=== PATIENT | female | born 1950 | race Two or more races ===

== ENCOUNTER → 2017-11-23 | Outpatient (CLI) | payer OTHER ==
[~2017-11-23] MED LIST: ADVAIR 2501 DISK W/1 IH; ALBUTEROL17 G1 IH; AVELOX ABC PAC400 MG PO; CATAPRES0.1 MG PO; CORDARONE I.50 MG/ML IV; COUMADIN3 MG PO; COZAAR100 MG PO; KLONOPIN0.5 MG/TAB PO; NABUMETONE500 MG PO; PERCOCET 5-3251 EACH PO; PROVENTIL3 ML/2.5 M IH; THEOPHYLLINE400 MG PO; VERAPAMIL ER200 MG PO; ZYNCOF 20-400120 ML PO
== END | disposition home or self-care (01) ==
LOC: TOM 11:05
DX: M12.812 Other specific arthropathies, not elsewhere classified, left shoulder (principal); M19.012 Primary osteoarthritis, left shoulder

== ENCOUNTER → 2017-11-23 | Outpatient (CLI) | payer OTHER | END | disposition home or self-care (01) | LOC: SONOGRAMA 11:12 | DX: M12.812 Other specific arthropathies, not elsewhere classified, left shoulder (principal); M19.012 Primary osteoarthritis, left shoulder ==

== ENCOUNTER 2017-12-15 16:14 | Emergency (ER) | payer OTHER ==
[~2017-12-15] VITALS: Ht 172.7 cm; Wt 93.4 kg
== END 2017-12-16 07:52 ==
LOC: ER 16:14
DX: J45.901 Unspecified asthma with (acute) exacerbation (principal); E03.8 Other specified hypothyroidism; J32.8 Other chronic sinusitis; J84.10 Pulmonary fibrosis, unspecified

== ENCOUNTER 2017-12-29 18:18 | Inpatient (IN) | payer OTHER ==
[~2017-12-29] VITALS: Ht 172.7 cm; Wt 93.4 kg
== END 2018-02-24 13:51 | DRG 202 ==
LOC: ER 18:18 → SEC-K 12-30 06:11 → MEDJ 12-30 06:11
PROC: 3E0F7GC Introduction of Other Therapeutic Substance into Respiratory Tract, Via Natural or Artificial Opening (ICD-10-PCS; principal; 2017-12-30)
PROC: 8E0ZXY6 Isolation (ICD-10-PCS; 2018-01-04)
PROC: 4A033R1 Measurement of Arterial Saturation, Peripheral, Percutaneous Approach (ICD-10-PCS; 2018-01-10)
PROC: BB24ZZZ Computerized Tomography (CT Scan) of Bilateral Lungs (ICD-10-PCS; 2018-01-17)
PROC: 05H533Z Insertion of Infusion Device into Right Subclavian Vein, Percutaneous Approach (ICD-10-PCS; 2018-01-30)
PROC: BW41ZZZ Ultrasonography of Abdomen and Pelvis (ICD-10-PCS; 2018-02-08)
PROC: BW3GZZZ Magnetic Resonance Imaging (MRI) of Pelvic Region (ICD-10-PCS; 2018-02-09)
PROC: BW24ZZZ Computerized Tomography (CT Scan) of Chest and Abdomen (ICD-10-PCS; 2018-02-21)
DX: J45.32 Mild persistent asthma with status asthmaticus (principal); J44.1 Chronic obstructive pulmonary disease with (acute) exacerbation; B37.0 Candidal stomatitis; B44.1 Other pulmonary aspergillosis; N39.0 Urinary tract infection, site not specified; J98.11 Atelectasis; R09.02 Hypoxemia; E03.8 Other specified hypothyroidism; J84.112 Idiopathic pulmonary fibrosis; Z16.24 Resistance to multiple antibiotics; B96.5 Pseudomonas (aeruginosa) (mallei) (pseudomallei) as the cause of diseases classified elsewhere; K75.89 Other specified inflammatory liver diseases; B96.20 Unspecified Escherichia coli [E. coli] as the cause of diseases classified elsewhere; B96.1 Klebsiella pneumoniae [K. pneumoniae] as the cause of diseases classified elsewhere; Z16.12 Extended spectrum beta lactamase (ESBL) resistance
CPT/HCPCS: 72195

== ENCOUNTER 2018-05-29 13:18 | Outpatient (CLI) | payer OTHER | END 2018-05-29 13:20 | disposition home or self-care (01) | LOC: RAD 13:18 | DX: J45.40 Moderate persistent asthma, uncomplicated (principal) ==

== ENCOUNTER 2018-07-05 09:50 | Outpatient (CLI) | payer OTHER | END 2018-07-05 10:04 | disposition home or self-care (01) | LOC: MAMO-SONO 09:50 | DX: Z12.31 Encounter for screening mammogram for malignant neoplasm of breast (principal); Z87.898 Personal history of other specified conditions; N62 Hypertrophy of breast ==

== ENCOUNTER 2018-07-18 11:41 | Outpatient (CLI) | payer OTHER | END 2018-07-18 12:00 | disposition home or self-care (01) | LOC: MRI 11:41 | DX: M25.512 Pain in left shoulder (principal) | CPT/HCPCS: 73221 ==

== ENCOUNTER 2018-08-14 08:59 | Outpatient (CLI) | payer OTHER | END 2018-08-14 09:05 | disposition home or self-care (01) | LOC: SONOGRAMA 08:59 | DX: N60.11 Diffuse cystic mastopathy of right breast (principal); N60.12 Diffuse cystic mastopathy of left breast; N63.13 Unspecified lump in the right breast, lower outer quadrant ==

== ENCOUNTER → 2018-10-11 14:19 | Outpatient (CLI) | payer OTHER | END | disposition home or self-care (01) | LOC: LAB 14:19 | DX: N39.0 Urinary tract infection, site not specified (principal); E04.1 Nontoxic single thyroid nodule; E78.2 Mixed hyperlipidemia; I10 Essential (primary) hypertension ==

== ENCOUNTER → 2018-10-27 | Day surgery (SDC) | payer OTHER ==
[~2018-10-27] MED LIST changes: +CATAPRES0.1 MG; +ENALAPRIL MALEA10 MG; +LIPITOR20 MG; +STIOLTO RESPIMAT4 GM; +SYNTHROID75 MCG; +[UNRECOGNIZED DRUG - OTHER] PO
== END | disposition home or self-care (01) ==
LOC: ADM 10-25 14:30 → CIR.AMB 06:32
DX: D24.1 Benign neoplasm of right breast (principal)

== ENCOUNTER 2018-11-07 13:25 | Outpatient (CLI) | payer OTHER | END 2018-11-07 13:36 | disposition home or self-care (01) | LOC: SONOGRAMA 13:25 | DX: M12.9 Arthropathy, unspecified (principal); M19.90 Unspecified osteoarthritis, unspecified site ==

== ENCOUNTER 2018-11-20 09:31 | Emergency (ER) | payer OTHER ==
[~2018-11-20] VITALS: Ht 172.7 cm; Wt 87.5 kg
[2018-11-20] MEDS ORDERED: KETO10TA2 PO (14:54)
[2018-11-20] MEDS ORDERED: MEDROLPACK PO (14:54)
[2018-11-20] MEDS ORDERED: NORFLEX100MG PO (14:54)
== END 2018-11-20 15:52 | disposition home or self-care (01) ==
LOC: ER 09:31
DX: M25.552 Pain in left hip (principal)

== ENCOUNTER 2019-06-21 09:04 | Emergency (ER) | payer OTHER ==
[~2019-06-21] VITALS: Ht 172.7 cm; Wt 92.1 kg
[~2019-06-21 09:04] MED LIST changes: +KETO10TA2 PO; +MEDROLPACK PO; +NORFLEX100MG PO
[2019-06-21] MEDS ORDERED: LASIX20 MG PO (09:22)
== END 2019-06-21 10:54 | disposition home or self-care (01) ==
LOC: ER 09:04
DX: M62.830 Muscle spasm of back (principal)

== ENCOUNTER 2019-09-07 11:53 | Emergency (ER) | payer OTHER ==
[~2019-09-07] VITALS: Ht 172.7 cm; Wt 93.9 kg
[~2019-09-07 11:53] MED LIST changes: +LASIX20 MG PO
[2019-09-07] MEDS ORDERED: PERCOCET 5-3251 EACH PO (12:56)
== END 2019-09-07 13:59 | disposition home or self-care (01) ==
LOC: ER 11:53
DX: G89.29 Other chronic pain (principal)

== ENCOUNTER 2019-09-14 10:16 | Emergency (ER) | payer OTHER ==
[~2019-09-14] VITALS: Ht 172.7 cm; Wt 92.5 kg
[2019-09-14] MEDS ORDERED: DICLOFENAC SODI75 MG PO (11:07)
[2019-09-14] MEDS ORDERED: CYCLOBENZAPRINE10 MG PO (11:07)
== END 2019-09-14 11:17 | disposition home or self-care (01) ==
LOC: ER 10:16
DX: M62.838 Other muscle spasm (principal)

== ENCOUNTER 2019-10-29 06:41 | Emergency (ER) | payer OTHER ==
[~2019-10-29] VITALS: Ht 172.7 cm; Wt 92.5 kg
[~2019-10-29 06:41] MED LIST changes: +CYCLOBENZAPRINE10 MG PO; +DICLOFENAC SODI75 MG PO
== END 2019-10-29 11:27 | disposition home or self-care (01) ==
LOC: ER 06:41
DX: B34.9 Viral infection, unspecified (principal)

== ENCOUNTER 2019-11-10 10:32 | Emergency (ER) | payer OTHER ==
[~2019-11-10] VITALS: Ht 172.7 cm; Wt 92.5 kg
== END 2019-11-10 16:35 | disposition home or self-care (01) ==
LOC: ER 10:32
DX: J45.901 Unspecified asthma with (acute) exacerbation (principal); J40 Bronchitis, not specified as acute or chronic

== ENCOUNTER 2019-12-22 14:17 | Emergency (ER) | payer OTHER ==
[~2019-12-22] VITALS: Ht 172.7 cm; Wt 92.5 kg
[2019-12-22] MEDS ORDERED: CARDIZEM CD240 MG (14:53)
== END 2019-12-22 20:08 | disposition home or self-care (01) ==
LOC: ER 14:17
DX: M12.852 Other specific arthropathies, not elsewhere classified, left hip (principal); M12.851 Other specific arthropathies, not elsewhere classified, right hip

== ENCOUNTER 2020-03-18 08:24 | Emergency (ER) | payer OTHER ==
[~2020-03-18] VITALS: Ht 172.7 cm; Wt 93.9 kg
[~2020-03-18 08:24] MED LIST changes: +CARDIZEM CD240 MG
== END 2020-03-18 09:15 | disposition home or self-care (01) ==
LOC: ER 08:24
DX: R07.89 Other chest pain (principal)

== ENCOUNTER 2020-04-15 12:05 | Emergency (ER) | payer OTHER ==
[~2020-04-15] VITALS: Ht 172.7 cm; Wt 93.9 kg
[2020-04-15] MEDS ORDERED: BUSPIRONE HCL15 MG (12:35)
[2020-04-15] MEDS ORDERED: TRAZODONE HCL50 MG (12:35)
[2020-04-15] MEDS ORDERED: LAMICTAL25 MG (12:36)
== END 2020-04-15 16:56 | disposition home or self-care (01) ==
LOC: ER 12:05
DX: R07.89 Other chest pain (principal); R06.02 Shortness of breath; R00.2 Palpitations; F41.8 Other specified anxiety disorders; S20.212S Contusion of left front wall of thorax, sequela; W18.39XS Other fall on same level, sequela

== ENCOUNTER 2020-08-20 15:13 | Outpatient (CLI) | payer OTHER ==
[~2020-08-20 15:13] MED LIST changes: +BUSPIRONE HCL15 MG; +LAMICTAL25 MG; +TRAZODONE HCL50 MG
== END 2020-08-20 15:17 | disposition home or self-care (01) ==
LOC: RAD 15:13
PROVIDERS: ATTEND Internal Medicine Cardiovascular Disease
DX: J44.9 Chronic obstructive pulmonary disease, unspecified (principal)

== ENCOUNTER 2020-09-10 10:07 | Outpatient (CLI) | payer OTHER | END 2020-09-10 10:21 | disposition home or self-care (01) | LOC: MAMO-SONO 10:07 | PROVIDERS: ATTEND Internal Medicine Cardiovascular Disease | DX: Z12.31 Encounter for screening mammogram for malignant neoplasm of breast (principal); N64.59 Other signs and symptoms in breast ==

== ENCOUNTER 2020-10-14 10:44 | Emergency (ER) | payer OTHER ==
[~2020-10-14] VITALS: Ht 172.7 cm; Wt 93.9 kg
[2020-10-14] MEDS ORDERED: KETO10TA2 PO (15:00)
[2020-10-14] MEDS ORDERED: NORFLEX100MG PO (15:00)
== END 2020-10-14 16:12 | disposition home or self-care (01) ==
LOC: ER 10:44
DX: S40.012A Contusion of left shoulder, initial encounter (principal); S50.02XA Contusion of left elbow, initial encounter; S70.02XA Contusion of left hip, initial encounter; M54.2 Cervicalgia; W18.09XA Striking against other object with subsequent fall, initial encounter; Y93.89 Activity, other specified; Y92.017 Garden or yard in single-family (private) house as the place of occurrence of the external cause; Y99.8 Other external cause status; Z03.818 Encounter for observation for suspected exposure to other biological agents ruled out

== ENCOUNTER 2020-11-19 19:51 | Emergency (ER) | payer OTHER ==
[~2020-11-19] VITALS: Ht 172.7 cm; Wt 48.5 kg
[2020-11-20] MEDS ORDERED: CIPRO500 MG PO (04:49)
== END 2020-11-20 05:09 | disposition home or self-care (01) ==
LOC: ER 19:51
DX: K80.50 Calculus of bile duct without cholangitis or cholecystitis without obstruction (principal); N39.0 Urinary tract infection, site not specified; R10.11 Right upper quadrant pain

== ENCOUNTER 2021-01-08 13:29 | Emergency (ER) | payer OTHER ==
[~2021-01-08] VITALS: Ht 172.7 cm; Wt 93.9 kg
[~2021-01-08 13:29] MED LIST changes: +CIPRO500 MG PO
[2021-01-08] MEDS ORDERED: VOLTAREN-XR100 MG PO (16:03)
[2021-01-08] MEDS ORDERED: PERCOCET 5-3251 EACH PO (16:03)
== END 2021-01-08 16:28 | disposition home or self-care (01) ==
LOC: EMR PED 13:29 → ER 13:29
DX: M13.852 Other specified arthritis, left hip (principal)

== ENCOUNTER 2021-01-20 07:45 | Inpatient (IN) | payer OTHER ==
[~2021-01-20] VITALS: Ht 172.7 cm; Wt 94.8 kg
[~2021-01-20 07:45] MED LIST changes: +VOLTAREN-XR100 MG PO
[2021-01-20] MEDS ORDERED: THEOPHYLLINE A300 M1 PO (09:42)
[2021-01-20] MEDS ORDERED: CARDURA1 MG PO (09:42)
[2021-01-20] MEDS ORDERED: SINGULAIR10 MG PO (09:43)
[2021-01-20] MEDS ORDERED: SYNTHROID88 MCG PO (09:43)
[2021-01-27] MEDS ORDERED: NABUMETONE750 MG (11:15)
[2021-01-27] MEDS ORDERED: AMITRIPTYLINE H75 MG (11:15)
[2021-01-27] MEDS ORDERED: OXYC1TAB9 (11:15)
[2021-01-27] MEDS ORDERED: SUPREP BOWEL P354 ML (11:15)
[2021-01-27] MEDS ORDERED: LAMICTAL150 MG (11:15)
[2021-01-27] MEDS ORDERED: DICLOFENAC SOD100 MG (11:15)
[2021-01-27] MEDS ORDERED: BUSPIRONE HCL15 MG (11:16)
[2021-01-27] MEDS ORDERED: CLONIDINE HCL0.1 MG (11:16)
[2021-01-27] MEDS ORDERED: FLONASE16 GM (11:16)
[2021-01-27] MEDS ORDERED: PAROXETINE HCL40 MG (11:16)
== END 2021-01-30 20:48 | DRG 470 ==
LOC: SURG 01-27 06:20 → O/R 01-27 06:20 → SURH 01-27 07:45 → SURG 01-27 16:54 → O/R 01-27 20:01 → SURG 01-27 20:02
PROVIDERS: ADMIT Orthopaedic Surgery; ATTEND Orthopaedic Surgery
PROC: 0SRB0JZ Replacement of Left Hip Joint with Synthetic Substitute, Open Approach (ICD-10-PCS; principal; 2021-01-27 10:15)
DX: M16.12 Unilateral primary osteoarthritis, left hip (principal); D62 Acute posthemorrhagic anemia; I10 Essential (primary) hypertension; E03.8 Other specified hypothyroidism; J44.9 Chronic obstructive pulmonary disease, unspecified; Z20.822 Contact with and (suspected) exposure to COVID-19

== ENCOUNTER 2021-01-21 06:00 | Day surgery (SDC) | payer OTHER ==
[~2021-01-21 06:00] MED LIST changes: +CARDURA1 MG PO; +SINGULAIR10 MG PO; +SYNTHROID88 MCG PO; +THEOPHYLLINE A300 M1 PO
== END 2021-01-21 10:30 | disposition home or self-care (01) ==
LOC: AMB-ENDOS 06:00
PROVIDERS: ATTEND Internal Medicine Gastroenterology
DX: D12.5 Benign neoplasm of sigmoid colon (principal); Z20.822 Contact with and (suspected) exposure to COVID-19

== ENCOUNTER 2021-04-07 13:24 | Outpatient (CLI) | payer OTHER ==
[~2021-04-07 13:24] MED LIST changes: +AMITRIPTYLINE H75 MG; +CLONIDINE HCL0.1 MG; +DICLOFENAC SOD100 MG; +FLONASE16 GM; +LAMICTAL150 MG; +NABUMETONE750 MG; +OXYC1TAB9; +PAROXETINE HCL40 MG; +SUPREP BOWEL P354 ML
== END 2021-04-07 13:32 | disposition home or self-care (01) ==
LOC: RAD 13:24
PROVIDERS: ATTEND Internal Medicine Pulmonary Disease
DX: J44.9 Chronic obstructive pulmonary disease, unspecified (principal)

== ENCOUNTER → 2021-04-23 09:58 | Outpatient (CLI) | payer OTHER ==
[~2021-04-23 09:58] MED LIST changes: +DICY20TA PO; +STOOL SOFTENER50 MG PO
== END | disposition home or self-care (01) ==
LOC: LAB 09:58
PROVIDERS: ATTEND Internal Medicine Cardiovascular Disease
DX: I10 Essential (primary) hypertension (principal); E11.9 Type 2 diabetes mellitus without complications; E03.8 Other specified hypothyroidism; E78.2 Mixed hyperlipidemia; Z12.11 Encounter for screening for malignant neoplasm of colon; E55.9 Vitamin D deficiency, unspecified

== ENCOUNTER 2021-08-10 14:52 | Emergency (ER) | payer OTHER ==
[~2021-08-10] VITALS: Ht 175.3 cm; Wt 81.2 kg
[~2021-08-10 14:52] MED LIST changes: -DICY20TA PO; -STOOL SOFTENER50 MG PO
[2021-08-10] MEDS ORDERED: STOOL SOFTENER50 MG PO (19:06)
[2021-08-10] MEDS ORDERED: DICY20TA PO (19:06)
[2021-08-10] MEDS ORDERED: KETO10TA2 PO (19:09)
== END 2021-08-10 19:12 | disposition home or self-care (01) ==
LOC: ER 14:52
DX: K59.09 Other constipation (principal); R10.32 Left lower quadrant pain

== ENCOUNTER 2021-09-03 13:13 | Emergency (ER) | payer OTHER ==
[~2021-09-03] VITALS: Ht 175.3 cm; Wt 99.3 kg
[~2021-09-03 13:13] MED LIST changes: +DICY20TA PO; +STOOL SOFTENER50 MG PO
[2021-09-03] MEDS ORDERED: LASIX20 MG PO (14:12)
[2021-09-03] MEDS ORDERED: GABAPENTIN300 M2 PO (15:54)
[2021-09-03] MEDS ORDERED: SKELAXIN800 MG PO (15:54)
[2021-09-03] MEDS ORDERED: DICLOFENAC POTA50 MG PO (15:54)
== END 2021-09-03 16:49 | disposition home or self-care (01) ==
LOC: ER 13:13
DX: G89.29 Other chronic pain (principal); M25.552 Pain in left hip; M25.551 Pain in right hip; R10.2 Pelvic and perineal pain; M54.59 Other low back pain

== ENCOUNTER 2021-09-10 13:09 | Outpatient (CLI) | payer OTHER ==
[~2021-09-10 13:09] MED LIST changes: +DICLOFENAC POTA50 MG PO; +GABAPENTIN300 M2 PO; +SKELAXIN800 MG PO
== END 2021-09-17 14:45 | disposition home or self-care (01) ==
LOC: MRI 13:09
DX: M48.07 Spinal stenosis, lumbosacral region (principal); M54.59 Other low back pain; M25.552 Pain in left hip; Z96.642 Presence of left artificial hip joint
CPT/HCPCS: 72148

== ENCOUNTER 2021-12-07 13:24 | Emergency (ER) | payer OTHER ==
[~2021-12-07] VITALS: Ht 175.3 cm; Wt 94.3 kg
[~2021-12-07 13:24] MED LIST changes: +NEURONTIN300 MG PO
== END 2021-12-07 17:04 | disposition home or self-care (01) ==
LOC: ER 13:24
DX: R05.9 Cough, unspecified (principal); Z03.818 Encounter for observation for suspected exposure to other biological agents ruled out

== ENCOUNTER 2021-12-15 09:50 | Outpatient (CLI) | payer OTHER | END 2021-12-15 09:56 | disposition home or self-care (01) | LOC: TOM 09:50 | PROVIDERS: ATTEND Internal Medicine Pulmonary Disease | DX: J44.9 Chronic obstructive pulmonary disease, unspecified (principal); R91.1 Solitary pulmonary nodule ==

== ENCOUNTER 2022-01-12 14:39 | Outpatient (CLI) | payer OTHER | END 2022-01-12 14:51 | disposition home or self-care (01) | LOC: TOM 14:39 | PROVIDERS: ATTEND Orthopaedic Surgery | DX: M21.70 Unequal limb length (acquired), unspecified site (principal); M21.751 Unequal limb length (acquired), right femur ==

== ENCOUNTER 2022-04-09 07:31 | Outpatient (CLI) | payer OTHER | END 2022-04-09 07:49 | disposition home or self-care (01) | LOC: SONOGRAMA 07:31 | PROVIDERS: ATTEND Internal Medicine Cardiovascular Disease | DX: Z12.31 Encounter for screening mammogram for malignant neoplasm of breast (principal); J44.9 Chronic obstructive pulmonary disease, unspecified; R10.9 Unspecified abdominal pain ==

== ENCOUNTER 2022-08-05 11:56 | Outpatient (CLI) | payer OTHER | END 2022-08-05 12:01 | disposition home or self-care (01) | LOC: RAD 11:56 | PROVIDERS: ATTEND Internal Medicine Cardiovascular Disease | DX: J44.9 Chronic obstructive pulmonary disease, unspecified (principal) ==

== ENCOUNTER 2022-08-23 14:38 | Outpatient (CLI) | payer OTHER | END 2022-08-23 14:42 | disposition home or self-care (01) | LOC: RAD 14:38 | PROVIDERS: ATTEND Orthopaedic Surgery | DX: M25.559 Pain in unspecified hip (principal); M25.511 Pain in right shoulder; M25.512 Pain in left shoulder ==

== ENCOUNTER 2022-08-31 13:11 | Outpatient (CLI) | payer OTHER ==
[2022-09-13] MEDS ORDERED: ENALAPRIL MALEA10 MG PO (10:30)
[2022-09-13] MEDS ORDERED: CARDIZEM CD300 MG PO (10:30)
[2022-09-13] MEDS ORDERED: SYNTHROID88 MCG PO (10:30)
[2022-09-13] MEDS ORDERED: LIPITOR40 M1 (10:30)
[2022-09-13] MEDS ORDERED: CARDURA1 MG PO (10:30)
[2022-09-13] MEDS ORDERED: TEOFILINA (10:31)
[2022-09-13] MEDS ORDERED: MUPIROCIN1 G1 TOP (14:40)
[2022-09-13] MEDS ORDERED: BACTRIM 400-801 EACH PO (14:40)
[2022-09-13] MEDS ORDERED: HIBICLENS118 ML TOP (14:40)
== END 2022-08-31 13:12 | disposition home or self-care (01) ==
LOC: NUCLEAR 13:11
PROVIDERS: ATTEND Obstetrics & Gynecology
DX: M81.0 Age-related osteoporosis without current pathological fracture (principal); Z88.0 Allergy status to penicillin

== ENCOUNTER → 2022-09-13 | Emergency (ER) | payer OTHER ==
[~2022-09-13] VITALS: Ht 177.8 cm; Wt 97.5 kg
[~2022-09-13] MED LIST changes: +BACTRIM 400-801 EACH PO; +CARDIZEM CD300 MG PO; +ENALAPRIL MALEA10 MG PO; +HIBICLENS118 ML TOP; +LIPITOR40 M1; +MUPIROCIN1 G1 TOP; +TEOFILINA
== END | disposition home or self-care (01) ==
LOC: ER 09:35
DX: R07.89 Other chest pain (principal); L02.412 Cutaneous abscess of left axilla; Z88.0 Allergy status to penicillin; E03.9 Hypothyroidism, unspecified; E78.00 Pure hypercholesterolemia, unspecified; I10 Essential (primary) hypertension

== ENCOUNTER → 2022-09-21 | Emergency (ER) | payer OTHER ==
[~2022-09-21] VITALS: Ht 177.8 cm; Wt 97.1 kg
== END | disposition home or self-care (01) ==
LOC: ER 14:08
DX: M25.50 Pain in unspecified joint (principal); Z88.0 Allergy status to penicillin

== ENCOUNTER 2023-04-13 14:43 | Outpatient (CLI) | payer OTHER | END 2023-04-13 14:59 | disposition home or self-care (01) | LOC: MAMO-SONO 14:43 | PROVIDERS: ATTEND Internal Medicine Cardiovascular Disease | DX: Z12.31 Encounter for screening mammogram for malignant neoplasm of breast (principal); N63.11 Unspecified lump in the right breast, upper outer quadrant ==

== ENCOUNTER 2024-01-11 09:42 | Outpatient (CLI) | payer OTHER | END 2024-01-11 09:45 | disposition home or self-care (01) | LOC: SONOGRAMA 09:42 | DX: E04.2 Nontoxic multinodular goiter (principal) ==

== ENCOUNTER 2024-01-11 10:50 | Emergency (ER) | payer OTHER ==
[~2024-01-11] VITALS: Ht 177.8 cm; Wt 97.1 kg
[2024-01-11 12:56] LABS: HEMATOCRIT 39.7 % (36.0-45.00); HEMOGLOBIN 13.4 g/dL (12.0-15.00); MEAN CELL VOLUME 96.8 fL (80.00-100.00); MEAN CORPUSCULAR HEMOGLOBIN 32.6 pg (27.00-32.0); MEAN CORPUSCULAR HGB CONC 33.7 g/dl (32.0-36.0); PLATELET COUNT 321 K/uL (150-450); RED CELL DISTRIBUTION WIDTH 14.5 % (11.5-14.5)
[2024-01-11 13:00] LABS: URINE APPEARANCE Clear; URINE BILIRRUBIN Negative (NEGATIVE); URINE BLOOD Trace; URINE COLOR Yellow; URINE GLUCOSE Negative (NEGATIVE); URINE LEUKOCYTE Negative; URINE NITRATE Negative; URINE PROTEIN Negative (NEGATIVE)
[2024-01-11 13:01] LABS: URINE BACTERIA 13.8 uL (0.0-1933); URINE EPITHELIAL CELLS 4.3 uL (0.0-38.8); URINE RBC 19.5 uL (0.0-20.8)
[2024-01-11 13:40] LABS: CALCIUM 9.1 mg/dL (8.5-10.1); CREATININE SERUM 0.73 mg/dL (0.55-1.02); GFR 78.37; POTASSIUM 3.72 mEq/L (3.5-5.1)
== END 2024-01-11 15:21 | disposition home or self-care (01) ==
LOC: ER 10:50
PROVIDERS: General Practice
DX: R30.0 Dysuria (principal); I10 Essential (primary) hypertension; E03.9 Hypothyroidism, unspecified; I49.9 Cardiac arrhythmia, unspecified; Z88.0 Allergy status to penicillin

== ENCOUNTER → 2024-01-11 14:51 | Outpatient (CLI) | payer OTHER ==
[2024-01-11 09:26] LABS: HEMATOCRIT 39.5 % (36.0-45.00); HEMOGLOBIN 13.5 g/dL (12.0-15.00); MEAN CELL VOLUME 96.4 fL (80.00-100.00); MEAN CORPUSCULAR HGB CONC 34.2 g/dl (32.0-36.0); PLATELET COUNT 289 K/uL (150-450); RED CELL DISTRIBUTION WIDTH 14.4 % (11.5-14.5)
[2024-01-11 10:08] LABS: ALBUMIN 3.4 gm/dL (3.4-5.0); BILIRUBIN TOTAL 0.38 mg/dL (0.3-1.2); CALCIUM 9.4 mg/dL (8.5-10.1); CHOL HDL RATIO 2.3 (0-5.0); CREATININE SERUM 0.75 mg/dL (0.55-1.02); GFR 75.96; GLOBULINA 2.9 G/DL (2.4-3.5); POTASSIUM 3.9 mEq/L (3.5-5.1); T4 FREE 1.46 NG/ML (0.76-1.46); TOTAL PROTEIN 6.3 gm/dL (6.4-8.2); TSH 1.6 uIU/mL (0.358-3.74)
[2024-01-11 13:19] LABS: ob NEGATIVE (NEGATIVE)
[2024-01-12 14:07] LABS: DHEA-SULFATE 14.5 ug/dL (20.4-186.6)
[2024-01-12 16:11] LABS: ACTH 11.7 pg/mL (7.2-63.3)
== END | disposition home or self-care (01) ==
LOC: LAB
PROVIDERS: ATTEND Internal Medicine
DX: E55.9 Vitamin D deficiency, unspecified (principal); E78.2 Mixed hyperlipidemia; I10 Essential (primary) hypertension; D50.8 Other iron deficiency anemias; E03.8 Other specified hypothyroidism; E53.8 Deficiency of other specified B group vitamins

== ENCOUNTER 2024-07-19 11:53 | Outpatient (CLI) | payer OTHER | END 2024-07-19 12:04 | disposition home or self-care (01) | LOC: SONOGRAMA 11:53 | PROVIDERS: ATTEND Internal Medicine Cardiovascular Disease | DX: M12.9 Arthropathy, unspecified (principal) ==

== ENCOUNTER 2024-11-30 08:59 | Emergency (ER) | payer OTHER ==
[~2024-11-30] VITALS: Ht 152.4 cm; Wt 91.6 kg
[2024-11-30] MEDS ORDERED: AMLODIPINE BESYL5 MG PO (09:21)
[2024-11-30] MEDS ORDERED: MONTELUKAST SOD10 MG PO (09:21)
[2024-11-30] MEDS ORDERED: FAMOTIDINE40 MG PO (09:22)
[2024-11-30] MEDS ORDERED: XARELTO20 MG (09:22)
[2024-11-30] MEDS ORDERED: DILTIAZEM HCL120 M1 PO (09:22)
[2024-11-30] MEDS ORDERED: LEVALBUTEROL HCL 0.63 MG/3 ML SOLUTION IH SCH (09:45)
[2024-11-30] MEDS ORDERED: LEVALBUTEROL HCL 0.63 MG/3 ML SOLUTION IH ONE (10:14)
[2024-11-30 11:02] LABS: HEMATOCRIT 35.4 % (36.0-45.00); HEMOGLOBIN 11.9 g/dL (12.0-15.00); MEAN CELL VOLUME 98.3 fL (80.00-100.00); MEAN CORPUSCULAR HGB CONC 33.6 g/dl (32.0-36.0); PLATELET COUNT 209 K/uL (150-450); RED BLOOD COUNT 3.61 M/uL (4.00-6.00)
[2024-11-30 11:28] LABS: ALBUMIN 2.9 gm/dL (3.4-5.0); ALKALINE PHOSPHATASE 107 U/L (50-136); ALT/SGPT 21 U/L (12-78); AST/SGOT 15 U/L (15-37); BILIRUBIN TOTAL 0.56 mg/dL (0.3-1.2); BLOOD UREA NITROGEN 8 mg/dL (7-18); BUN CREA RATIO 13 (7.0-25.0); CALCIUM 9.1 mg/dL (8.5-10.1); CARBON DIOXIDE 29 mEq/L (21-32); CHLORIDE 111 mmol/L (98-107); CREATININE SERUM 0.63 mg/dL (0.55-1.02); GFR 92.63; GLOBULINA 3.3 G/DL (2.4-3.5); GLUCOSE FASTING 103 mg/dL (65-100); OSMOLALITY SERUM 289 MOSM/KG (275-295); SODIUM 146 mmol/L (136-145); TOTAL PROTEIN 6.2 gm/dL (6.4-8.2)
[2024-11-30 11:32] LABS: ANION GAP 9 (10.0-20.0); C-REACTIVE PROTEIN < 0.29 MG/DL (0.00-0.29)
[2024-11-30 11:33] LABS: POTASSIUM 2.99 mEq/L (3.5-5.1)
[2024-11-30] MEDS ORDERED: POTASSIUM CHLORIDE/D5-0.9%NACL 1,000 ML IV ONE (11:45)
[2024-11-30] MEDS ORDERED: POTASSIUM CHLORIDE 20MEQ/100ML H2O PB IV ONE (11:54)
[2024-11-30] MEDS ORDERED: POTASSIUM CHLORIDE/D5-0.9%NACL 20 MEQ/1,000 ML PIGGYBAG IV ONE (12:10)
[2024-11-30 12:58] LABS: ABG PH 7.457 (7.35-7.45); ABG PO2 80.9 mmHg (80-100); ABG pCO2 41.4 mmHg (35-45); BASE EXCESS 1.3 mmol/l; BICARBONATE 28.6 mmol/l (23-25); SaO2 96.6 %; Tco2 29.9 mmol/l
[2024-11-30 12:59] LABS: allen test SATISFACTORY; o2 32 %; puncture site RADIAL RIGHT
[2024-11-30] MEDS ORDERED: POTASSIUM BICARBONATE/CIT AC 25 MEQ TABLET.EFF PO ONE (22:00)
== END 2024-11-30 22:44 | disposition home or self-care (01) ==
LOC: ER 09:01
PROVIDERS: Emergency Medicine
DX: R53.1 Weakness (principal); R53.83 Other fatigue; Z20.822 Contact with and (suspected) exposure to COVID-19; I10 Essential (primary) hypertension; E03.8 Other specified hypothyroidism; E87.6 Hypokalemia; Z88.0 Allergy status to penicillin

== ENCOUNTER 2024-12-25 13:36 | Emergency (ER) | payer OTHER ==
[~2024-12-25] VITALS: Ht 177.8 cm; Wt 97.1 kg
[~2024-12-25 13:36] MED LIST changes: +AMLODIPINE BESYL5 MG PO; +DILTIAZEM HCL120 M1 PO; +FAMOTIDINE40 MG PO; +MONTELUKAST SOD10 MG PO; +XARELTO20 MG
[2024-12-25] MEDS ORDERED: ORPHENADRINE CITRATE 30 MG/ML AMPUL IM ONE (17:00)
[2024-12-25] MEDS ORDERED: DEXAMETHASONE SODIUM PHOSPHATE 4 MG/ML VIAL IM ONE (17:00)
[2024-12-25] MEDS ORDERED: KETOROLAC TROMETHAMINE 60 MG VIAL IM ONE ×2 (17:00→17:05)
[2024-12-25] MEDS ORDERED: ORPHENADRINE CITRATE 30 MG/ML AMPUL ONE (17:05)
[2024-12-25] MEDS ORDERED: DEXAMETHASONE SODIUM PHOSPHATE 4 MG/ML VIAL ONE (17:05)
[2024-12-25] MEDS ORDERED: DICLOFENAC SODI75 MG PO (20:18)
== END 2024-12-25 20:56 | disposition home or self-care (01) ==
LOC: ER 13:38
DX: M25.712 Osteophyte, left shoulder (principal); M19.90 Unspecified osteoarthritis, unspecified site; I10 Essential (primary) hypertension; E03.8 Other specified hypothyroidism; Z88.0 Allergy status to penicillin

== ENCOUNTER 2025-01-22 10:30 | Inpatient (IN) | payer OTHER ==
[~2025-01-22] VITALS: Ht 177.8 cm; Wt 131.5 kg
--- NOTE | 2025-01-22 11:03 | NUR ---
PACIENTE REFIERE ASHTMA DESDE HACE 4 SHIRLEY, CON SIBILANCIAS Y TOS PRODUCTIVA. SE MIDEN Y REPORTAN SIGNOS VITALES Y SE UBICA EN AREA DE ASTHMA UNIT.
[2025-01-22] MEDS ORDERED: LEVALBUTEROL HCL 1.25 MG/3 ML SOLUTION IH SCH (11:45)
[2025-01-22] MEDS ORDERED: METHYLPREDNISOLONE SOD SUCC 125 MG VIAL IV ONE (11:45)
[2025-01-22] MEDS ORDERED: IPRATROPIUM BROMIDE 0.5 MG/2.5 ML AMPUL.NEB IH SCH ×2 (11:45→20:32)
[2025-01-22] MEDS ORDERED: MAGNESIUM SULFATE IN WATER 2 GM/50 ML PIGGYBAG IV ONE (11:45)
[2025-01-22] MEDS ORDERED: MAGNESIUM SULFATE 50% 1,000 MG/2 ML VIAL ONE (12:01)
[2025-01-22] MEDS ORDERED: LEVALBUTEROL HCL 1.25 MG/3 ML SOLUTION IH ONE (12:01)
[2025-01-22] MEDS ORDERED: METHYLPREDNISOLONE SOD SUCC 125 MG VIAL ONE (12:02)
[2025-01-22] MEDS ORDERED: IPRATROPIUM BROMIDE 0.5 MG/2.5 ML AMPUL.NEB IH ONE (12:02)
[2025-01-22 12:06] LABS: HEMATOCRIT 42.1 % (36.0-45.00); MEAN CELL VOLUME 98.2 fL (80.00-100.00); MEAN CORPUSCULAR HGB CONC 33.4 g/dl (32.0-36.0); PLATELET COUNT 269 K/uL (150-450); RED BLOOD COUNT 4.29 M/uL (4.00-6.00); RED CELL DISTRIBUTION WIDTH 14.8 % (11.5-14.5)
[2025-01-22 12:08] LABS: MEAN CORPUSCULAR HEMOGLOBIN 32.6 pg (27.00-32.0)
[2025-01-22 12:11] LABS: URINE APPEARANCE Clear; URINE BILIRRUBIN Small (NEGATIVE); URINE BLOOD Negative; URINE COLOR Dark Yellow; URINE GLUCOSE Negative (NEGATIVE); URINE KETONE 15 (NEGATIVE); URINE LEUKOCYTE Small; URINE NITRATE Negative; URINE PROTEIN 30 (NEGATIVE)
[2025-01-22 12:15] LABS: ABG PO2 109.8 mmHg (80-100); ABG pCO2 37.1 mmHg (35-45); BASE EXCESS 0.1 mmol/l; SaO2 98.4 %; Tco2 25.2 mmol/l
[2025-01-22 12:16] LABS: allen test SATISFACTORY; o2 21 %; puncture site RADIAL RIGHT
[2025-01-22 12:17] LABS: URINE BACTERIA 449.1 uL (0.0-1933); URINE CAST 4.12 uL (0.0-1.40); URINE RBC 10.3 uL (0.0-20.8)
[2025-01-22 12:57] LABS: URINE CRYSTALS FEW /HPF
[2025-01-22 12:58] LABS: URINE MUCUS MODERATE
--- NOTE | 2025-01-22 13:17 | NUR ---
SE ORIENTA A PACIENTE SOBRE ORDENES MEDICAS, REFIERE ENTENDER. SE COLECTAN MUESTRAS DE LABORATORIO Y SE CANALIZA A PACIENTE BAJO MEDIDAS ASEPTICAS. SE ADMINISTRAN MEDICAMENTOS NETTE ORDEN MEDICA. SE REALIZA CT.
[2025-01-22 14:00] LABS: INR 1.16; PARTIAL THROMBOPLASTIN TIME 28.9 SECONDS (22.0-34.0); PROTHROMBIN TIME 12.5 SECONDS (9.0-11.5)
[2025-01-22 14:06] LABS: ALBUMIN 3.4 gm/dL (3.4-5.0); BILIRUBIN TOTAL 0.6 mg/dL (0.3-1.2); CALCIUM 8.8 mg/dL (8.5-10.1); CREATININE SERUM 0.7 mg/dL (0.55-1.02); GFR 82.02; GLOBULINA 2.9 G/DL (2.4-3.5); POTASSIUM 3.96 mEq/L (3.5-5.1); TOTAL PROTEIN 6.3 gm/dL (6.4-8.2)
[2025-01-22] MEDS ORDERED: MONTELUKAST SODIUM 10 MG TABLET PO SCH (20:35)
[2025-01-22] MEDS ORDERED: ACETAMINOPHEN 500 MG GEL..CAP PO PRN (20:45)
[2025-01-22] MEDS ORDERED: FUROsemide 20 MG/2 ML VIAL IV SCH (21:00)
[2025-01-22] MEDS ORDERED: ACETAMINOPHEN 500 MG GEL..CAP PO ONE (22:06)
[2025-01-22 22:54] VITALS: BP 165/90; O2SAT 96
[2025-01-23] MEDS ORDERED: LEVOTHYROXINE SODIUM 88 MCG TABLET PO SCH (06:00)
[2025-01-23] MEDS ORDERED: ENALAPRIL MALEATE 10 MG TABLET PO SCH (09:00)
[2025-01-23] MEDS ORDERED: RIVAROXABAN 20 MG TABLET PO SCH (09:00)
[2025-01-23] MEDS ORDERED: DILTIAZEM HCL 120 MG TABLET PO SCH (09:00)
[2025-01-23] MEDS ORDERED: FAMOTIDINE/PF 20 MG in 0.9 % SODIUM CHLORIDE 8 ML IV PUSH SCH (09:00)
[2025-01-23] MEDS ORDERED: ATORVASTATIN CALCIUM 40 MG TABLET PO SCH (09:00)
[2025-01-23 09:24] VITALS: BP 192/115; O2SAT 96
[2025-01-23] MEDS ORDERED: HYDROCHLOROTHIAZIDE 25 MG TABLET PO SCH (09:43)
[2025-01-23] MEDS ORDERED: DOXAZOSIN MESYLATE 2 MG TABLET PO SCH (09:44)
[2025-01-23] MEDS ORDERED: hydrALAZINE HCL 20 MG VIAL IV NR (10:00)
[2025-01-23] MEDS ORDERED: FUROsemide 20 MG/2 ML VIAL IV SCH (12:00)
[2025-01-23 13:15] VITALS: BP 144/65
[2025-01-23 16:35] VITALS: O2SAT 99
[2025-01-23 17:09] VITALS: BP 175/60; O2SAT 97
[2025-01-23 20:19] VITALS: O2SAT 98
[2025-01-24] VITALS (9 sets, daily range): BP systolic 163–170; BP diastolic 82–90; O2SAT 95–100
[2025-01-24 09:11] LABS: HEMOGLOBIN 14.9 g/dL (12.0-15.00); MEAN CELL VOLUME 97.4 fL (80.00-100.00); MEAN CORPUSCULAR HGB CONC 33.9 g/dl (32.0-36.0); PLATELET COUNT 287 K/uL (150-450); RED BLOOD COUNT 4.52 M/uL (4.00-6.00); RED CELL DISTRIBUTION WIDTH 14.8 % (11.5-14.5)
[2025-01-24 09:54] LABS: ALBUMIN 3.3 gm/dL (3.4-5.0); BILIRUBIN TOTAL 0.54 mg/dL (0.3-1.2); CREATININE SERUM 0.62 mg/dL (0.55-1.02); GFR 94.35; GLOBULINA 2.6 G/DL (2.4-3.5); POTASSIUM 3.97 mEq/L (3.5-5.1); TOTAL PROTEIN 5.9 gm/dL (6.4-8.2)
[2025-01-24] MEDS ORDERED: ENALAPRIL MALEATE 10 MG TABLET PO SCH (17:00)
[2025-01-25] VITALS (7 sets, daily range): BP systolic 150–156; BP diastolic 65–86; O2SAT 95–98
[2025-01-25] MEDS ORDERED: DOXAZOSIN MESYLATE 2 MG TABLET PO SCH (09:00)
[2025-01-25] MEDS ORDERED: FAMOtidine 20 MG TABLET PO SCH (21:00)
== END 2025-01-25 17:00 | disposition home or self-care (01) | DRG 292 ==
LOC: ER 10:33 → MEDI 21:19
PROVIDERS: General Practice; ADMIT Student in an Organized Health Care Education/Training Program; ATTEND Student in an Organized Health Care Education/Training Program
PROC: BW24ZZZ Computerized Tomography (CT Scan) of Chest and Abdomen (ICD-10-PCS; principal; 2025-01-22)
PROC: B24BYZZ Ultrasonography of Heart with Aorta using Other Contrast (ICD-10-PCS; 2025-01-22)
PROC: 4A12X4Z Monitoring of Cardiac Electrical Activity, External Approach (ICD-10-PCS; 2025-01-23)
DX: I50.9 Heart failure, unspecified (principal); J44.1 Chronic obstructive pulmonary disease with (acute) exacerbation; I11.9 Hypertensive heart disease without heart failure; R09.02 Hypoxemia; I48.91 Unspecified atrial fibrillation

== ENCOUNTER 2025-01-28 10:04 | Outpatient (CLI) | payer OTHER | END 2025-01-28 10:05 | disposition home or self-care (01) | LOC: RAD 10:04 | PROVIDERS: ATTEND Physical Medicine & Rehabilitation | DX: M17.11 Unilateral primary osteoarthritis, right knee (principal); M25.552 Pain in left hip ==

== ENCOUNTER 2025-02-08 13:36 | Outpatient (CLI) | payer OTHER | END 2025-02-08 13:47 | disposition home or self-care (01) | LOC: MRI 13:36 | PROVIDERS: ATTEND Physical Medicine & Rehabilitation | DX: M75.82 Other shoulder lesions, left shoulder (principal); M75.02 Adhesive capsulitis of left shoulder | CPT/HCPCS: 73221 ==

== ENCOUNTER 2025-03-13 15:47 | Emergency (ER) | payer OTHER ==
[~2025-03-13] VITALS: Ht 172.7 cm; Wt 95.3 kg
[~2025-03-13 15:47] MED LIST changes: +TRAM1TAB98 PO
[2025-03-13 17:09] VITALS: BP 137/77; O2SAT 99
[2025-03-13] MEDS ORDERED: KETOROLAC TROMETHAMINE 60 MG VIAL IM STA (17:29)
[2025-03-13] MEDS ORDERED: DEXAMETHASONE SODIUM PHOSPHATE 4 MG/ML VIAL IM STA (17:30)
[2025-03-13] MEDS ORDERED: ACETAMINOPHEN 500 MG GEL..CAP PO STA (17:31)
[2025-03-13] MEDS ORDERED: ACETAMINOPHEN 500 MG GEL..CAP PO ONE (17:32)
[2025-03-13] MEDS ORDERED: KETOROLAC TROMETHAMINE 60 MG VIAL IM ONE (17:32)
[2025-03-13] MEDS ORDERED: DEXAMETHASONE SODIUM PHOSPHATE 4 MG/ML VIAL ONE (17:33)
== END 2025-03-13 17:47 | disposition home or self-care (01) ==
LOC: ER 16:11
DX: M25.512 Pain in left shoulder (principal); Z88.0 Allergy status to penicillin
CPT/HCPCS: 29105; 96372; 99282; J1100; J1885

== ENCOUNTER → 2025-03-19 | Outpatient (CLI) | payer OTHER ==
[~2025-03-19] MED LIST changes: +KETOROLAC TROMETHAMINE 60 MG VIAL IM ONE
== END | disposition home or self-care (01) ==
LOC: RAD 08:32
PROVIDERS: ATTEND Orthopaedic Surgery
DX: M16.0 Bilateral primary osteoarthritis of hip (principal); M17.0 Bilateral primary osteoarthritis of knee

== ENCOUNTER → 2025-03-19 | Emergency (ER) | payer OTHER ==
[~2025-03-19] MED LIST changes: -KETOROLAC TROMETHAMINE 60 MG VIAL IM ONE
== END | disposition home or self-care (01) ==
LOC: ER 07:21
DX: S43.422A Sprain of left rotator cuff capsule, initial encounter (principal); Z88.0 Allergy status to penicillin
CPT/HCPCS: 96372; 99282; J1885

== ENCOUNTER 2025-06-11 13:09 | Emergency (ER) | payer OTHER ==
[~2025-06-11] VITALS: Ht 172.7 cm; Wt 93.9 kg
[2025-06-11] MEDS ORDERED: IPRATROPIUM/ALBUTEROL SULFATE 3 ML AMPUL.NEB IH STA (17:08)
[2025-06-11] MEDS ORDERED: METHYLPREDNISOLONE SOD SUCC 125 MG VIAL IV STA (17:10)
[2025-06-11 17:49] LABS: BASO % 0.4 % (0.1-1.2); EOS # 0.07 (0.04-0.54); EOS % 1.0 % (0.7-7.0); LYMPH # 2.47 (1.18-3.74); LYMPH % 34.5 % (19.3-53.1); MEAN PLATELET VOLUME 10.20 fl (9.4-12.4); MONO # 0.53 (0.24-0.82); MONO % 7.4 % (4.7-12.5); NEUT # 4.02 (1.56-6.13); NEUT % 56.3 % (34.0-71.1); RED CELL DISTRIBUTION WIDTH 12.7 % (11.6-14.4)
[2025-06-11 18:29] LABS: COVID-19 AG NEGATIVE (NEGATIVE)
== END 2025-06-11 19:45 | disposition home or self-care (01) ==
LOC: ER 13:09
DX: J06.9 Acute upper respiratory infection, unspecified (principal); J45.909 Unspecified asthma, uncomplicated; Z88.0 Allergy status to penicillin; Z20.822 Contact with and (suspected) exposure to COVID-19
CPT/HCPCS: 36415; 71045; 94640; 96365; 99283; J3490

== ENCOUNTER 2025-08-06 11:06 | Emergency (ER) | payer OTHER ==
[~2025-08-06] VITALS: Ht 177.8 cm; Wt 93.9 kg
[2025-08-06] MEDS ORDERED: BENZONATATE 200 MG CAPSULE PO ONE (12:15)
[2025-08-06] MEDS ORDERED: LEVALBUTEROL HCL 1.25 MG/3 ML SOLUTION IH ONE (12:15)
[2025-08-06] MEDS ORDERED: KETOROLAC TROMETHAMINE 60 MG VIAL IM ONE (12:15)
[2025-08-06 13:19] LABS: BASO % 0.5 % (0.1-1.2); EOS # 0.07 (0.04-0.54); EOS % 1.0 % (0.7-7.0); LYMPH # 1.62 (1.18-3.74); LYMPH % 22.0 % (19.3-53.1); MEAN PLATELET VOLUME 10.50 fl (9.4-12.4); MONO # 0.39 (0.24-0.82); MONO % 5.3 % (4.7-12.5); NEUT # 5.20 (1.56-6.13); NEUT % 70.8 % (34.0-71.1); RED CELL DISTRIBUTION WIDTH 12.2 % (11.6-14.4)
[2025-08-06 13:46] LABS: ALT/SGPT 31.0 U/L (12-78); AST/SGOT 24.0 U/L (15-37); BILIRUBIN TOTAL 0.42 mg/dL (0.3-1.2); BUN CREA RATIO 19.0 (7.0-25.0); CREATININE SERUM 0.72 mg/dL (0.55-1.02); GFR 79.18; GLOBULINA 3.1 G/DL (2.4-3.5); GLUCOSE FASTING 106.0 mg/dL (65-100); OSMOLALITY SERUM 288.0 MOSM/KG (275-295)
[2025-08-06 14:06] LABS: COVID-19 AG NEGATIVE (NEGATIVE)
[2025-08-06 14:34] LABS: URINE APPEARANCE Clear; URINE BILIRRUBIN Negative (NEGATIVE); URINE BLOOD Negative; URINE COLOR Dark Yellow; URINE GLUCOSE Negative (NEGATIVE); URINE KETONE Trace (NEGATIVE); URINE LEUKOCYTE Small; URINE NITRATE Negative; URINE PROTEIN Trace (NEGATIVE); URINE UROBILINOGEN 1.0 E.U./dl
[2025-08-06 14:38] LABS: URINE BACTERIA 134.3 uL (0.0-1933); URINE EPITHELIAL CELLS 15.6 uL (0.0-38.8); URINE RBC 8.5 uL (0.0-20.8); URINE WBC 143.9 uL (0.0-23.2)
[2025-08-06 14:42] LABS: URINE CAST 1.02 uL (0.0-1.40)
[2025-08-06] MEDS ORDERED: PEPCID AC20 MG PO (14:46)
[2025-08-06] MEDS ORDERED: BACTRIM DS TAB1 EACH PO (14:46)
== END 2025-08-06 15:02 | disposition home or self-care (01) ==
LOC: ER 11:06
PROVIDERS: General Practice
DX: N39.0 Urinary tract infection, site not specified (principal); R05.9 Cough, unspecified; Z20.822 Contact with and (suspected) exposure to COVID-19; I10 Essential (primary) hypertension; E03.8 Other specified hypothyroidism; Z88.0 Allergy status to penicillin
CPT/HCPCS: 36415; 71046; 72100; 73502; 94640; 96372; 99283; J1885

== ENCOUNTER 2025-08-13 11:14 | Inpatient (IN) | payer OTHER ==
[~2025-08-13] VITALS: Ht 172.7 cm; Wt 93.9 kg
[~2025-08-13 11:14] MED LIST changes: +BACTRIM DS TAB1 EACH PO; +PEPCID AC20 MG PO
[2025-08-13] MEDS ORDERED: CARDIZEM CD120 MG PO (11:57)
[2025-08-13] MEDS ORDERED: LEVOFLOXACIN500 MG PO (11:59)
[2025-08-13] MEDS ORDERED: MONTELUKAST SODI4 M1 PO (12:00)
--- NOTE | 2025-08-13 12:00 | NUR ---
SE RECIBE PACIENTE ALERTA Y CONCIENTE X3. LA MISMA REFIERE TENER ASTHMA DESDE HACE 2 SEMANAS. SE PROCEE A ISABEL S/V A LA PACIENTE Y SE UBICA EN UA
[2025-08-13] MEDS ORDERED: AZITHROMYCIN 500 MG TABLET PO ONE (12:30)
[2025-08-13] MEDS ORDERED: METHYLPREDNISOLONE SOD SUCC 125 MG VIAL IV ONE (12:30)
[2025-08-13] MEDS ORDERED: LEVALBUTEROL HCL 1.25 MG/3 ML SOLUTION IH SCH ×2 (12:30→17:48)
[2025-08-13] MEDS ORDERED: IPRATROPIUM BROMIDE 0.5 MG/2.5 ML AMPUL.NEB IH SCH ×2 (12:30→17:48)
[2025-08-13] MEDS ORDERED: MAGNESIUM SULFATE IN WATER 2 GM/50 ML PIGGYBAG IV ONE (12:30)
[2025-08-13 13:10] LABS: BASO % 0.2 % (0.1-1.2); EOS # 0.01 (0.04-0.54); EOS % 0.1 % (0.7-7.0); LYMPH # 1.98 (1.18-3.74); LYMPH % 17.3 % (19.3-53.1); MEAN PLATELET VOLUME 9.90 fl (9.4-12.4); MONO # 0.91 (0.24-0.82); MONO % 7.9 % (4.7-12.5); NEUT # 8.49 (1.56-6.13); NEUT % 74.1 % (34.0-71.1); RED CELL DISTRIBUTION WIDTH 11.9 % (11.6-14.4)
[2025-08-13 13:37] LABS: ALT/SGPT 55.0 U/L (12-78); AST/SGOT 25.0 U/L (15-37); BILIRUBIN TOTAL 0.59 mg/dL (0.3-1.2); BUN CREA RATIO 28.0 (7.0-25.0); CREATININE SERUM 0.8 mg/dL (0.55-1.02); GFR 70.12; GLOBULINA 3.3 G/DL (2.4-3.5); GLUCOSE FASTING 109.0 mg/dL (65-100); OSMOLALITY SERUM 289.0 MOSM/KG (275-295)
--- NOTE | 2025-08-13 13:43 | NUR ---
SE ORIENTA PTE SOBRE TX MEDICO Y REFIERE ACEPTAR. SE CANALIZA Y SE COLECTAN MUESTRAS DE LAB, SE ADMINISTRA MED NETTE ORDEN MEIDCA. SE NOTIFICAN ABG Y TERAPIAS A PERSONAL DE TERAPIA MISS BROWN.
--- NOTE | 2025-08-13 13:53 | NUR ---
SE ORIENTA A PACIENTE SOBRE TX MEDICO Y LEE REFIERE ENTENDER Y ACEPTAR EL MISMO. SE PROCEDE A ADMINISTARR MEDICAMENTO NETTE ORDEN MEDICA BAJO MEDIDAS ASEPTICAS.
[2025-08-13 13:58] LABS: COVID-19 AG NEGATIVE (NEGATIVE)
[2025-08-13 15:36] LABS: ABG PH 7.428 (7.35-7.45); ABG PO2 79.7 mmHg (80-100); BICARBONATE 25.7 mmol/l (23-25)
[2025-08-13 15:42] LABS: o2 21 %
[2025-08-13] MEDS ORDERED: levoFLOXacin IN DEXTROSE 5 % 150 ML IV SCH (17:43)
[2025-08-13] MEDS ORDERED: FAMOTIDINE/PF 20 MG in 0.9 % SODIUM CHLORIDE 8 ML IV PUSH SCH (17:44)
[2025-08-13] MEDS ORDERED: ACETAMINOPHEN 500 MG GEL..CAP PO PRN ×2 (17:45)
[2025-08-13] MEDS ORDERED: METHYLPREDNISOLONE SOD SUCC 40 MG VIAL IV SCH (17:45)
[2025-08-13] MEDS ORDERED: GUAIFEN/DEXTROMETHORPHAN/PE 10 ML BLIST.PACK PO SCH (17:49)
[2025-08-13] MEDS ORDERED: 0.9 % SODIUM CHLORIDE 1,000 ML IV SCH (18:00)
[2025-08-13 20:52] LABS: URINE APPEARANCE Clear; URINE BILIRRUBIN Negative (NEGATIVE); URINE BLOOD Negative; URINE COLOR Yellow; URINE GLUCOSE Negative (NEGATIVE); URINE KETONE Negative (NEGATIVE); URINE LEUKOCYTE Negative; URINE NITRATE Negative; URINE PROTEIN Negative (NEGATIVE); URINE UROBILINOGEN 0.2 E.U./dl
[2025-08-13 20:56] LABS: URINE BACTERIA 23.9 uL (0.0-1933); URINE EPITHELIAL CELLS 5.3 uL (0.0-38.8); URINE WBC 3.9 uL (0.0-23.2)
[2025-08-13 21:03] LABS: URINE CAST 0.58 uL (0.0-1.40); URINE RBC 1.6 uL (0.0-20.8)
[2025-08-13 21:14] VITALS: BP 147/75; O2SAT 95
[2025-08-14 03:10] VITALS: BP 162/75; O2SAT 100
[2025-08-14] MEDS ORDERED: LEVOTHYROXINE SODIUM 88 MCG TABLET PO SCH (06:00)
[2025-08-14 06:51] LABS: INR 1.36
[2025-08-14] MEDS ORDERED: DILTIAZEM HCL 120 MG TABLET PO SCH (09:00)
[2025-08-14] MEDS ORDERED: AMLODIPINE BESYLATE 5 MG TABLET PO SCH (09:00)
[2025-08-14] MEDS ORDERED: ENOXAPARIN SODIUM 40 MG/0.4 ML SYRINGE SUBCUTANEO SCH (09:00)
[2025-08-14 09:35] VITALS: BP 172/86
[2025-08-14] MEDS ORDERED: hydrALAZINE HCL 20 MG VIAL IV PRN (13:15)
[2025-08-14] MEDS ORDERED: DOXAZOSIN MESYLATE 2 MG TABLET PO SCH ×2 (17:00)
[2025-08-14 18:14] VITALS: BP 184/64
[2025-08-14] MEDS ORDERED: DOXYCYCLINE HYCLATE 100MG IV SCH (21:00)
[2025-08-14] MEDS ORDERED: ENOXAPARIN SODIUM 80 MG/0.8 ML SYRINGE SUBCUTANEO SCH (21:00)
[2025-08-15 01:01] VITALS: BP 149/83; O2SAT 98
[2025-08-15 06:23] LABS: BASO % 0.1 % (0.1-1.2); EOS # 0.00 (0.04-0.54); EOS % 0.0 % (0.7-7.0); LYMPH # 0.58 (1.18-3.74); LYMPH % 6.0 % (19.3-53.1); MEAN PLATELET VOLUME 10.60 fl (9.4-12.4); MONO # 0.17 (0.24-0.82); MONO % 1.7 % (4.7-12.5); NEUT # 8.92 (1.56-6.13); NEUT % 91.7 % (34.0-71.1); RED CELL DISTRIBUTION WIDTH 11.9 % (11.6-14.4)
[2025-08-15 06:59] LABS: ALT/SGPT 43 U/L (12-78); AST/SGOT 20 U/L (15-37); BILIRUBIN TOTAL 0.54 mg/dL (0.3-1.2); BUN CREA RATIO 22 (7.0-25.0); CREATININE SERUM 0.74 mg/dL (0.55-1.02); GFR 76.72; GLOBULINA 2.7 G/DL (2.4-3.5); GLUCOSE FASTING 146 mg/dL (65-100); OSMOLALITY SERUM 289 MOSM/KG (275-295)
[2025-08-15 08:56] VITALS: BP 166/75
[2025-08-15 09:09] LABS: MYCOPLASMA PNEUMONIAE IGM NON REACTIVE (NO REACTIVE)
[2025-08-15] MEDS ORDERED: ALBUTEROL SULFATE 3 ML/2.5 MG AMPUL.NEB IH ONE (13:22)
[2025-08-15 18:13] VITALS: BP 170/78
[2025-08-15] MEDS ORDERED: DOXYCYCLINE HYCLATE 100MG IV ONE (19:38)
[2025-08-16 02:46] VITALS: BP 158/75; O2SAT 95
[2025-08-16] MEDS ORDERED: DOXYCYCLINE HYCLATE 100MG IV ONE ×2 (07:48→20:13)
[2025-08-16 08:47] VITALS: BP 164/72
[2025-08-16] MEDS ORDERED: AMLODIPINE BESYLATE 10 MG TABLET PO SCH (09:00)
[2025-08-16] MEDS ORDERED: LORATADINE 10 MG TABLET PO NR (10:15)
[2025-08-16] MEDS ORDERED: MONTELUKAST SODIUM 10 MG TABLET PO SCH (17:00)
[2025-08-16 21:08] VITALS: BP 182/82
[2025-08-17 03:07] VITALS: BP 162/78; O2SAT 97
[2025-08-17] MEDS ORDERED: DOXYCYCLINE HYCLATE 100MG IV ONE ×2 (07:41→19:48)
[2025-08-17 08:57] VITALS: BP 180/88; O2SAT 99
[2025-08-17] MEDS ORDERED: LORATADINE 10 MG TABLET PO SCH (09:00)
[2025-08-17 12:00] VITALS: BP 150/74
[2025-08-17 15:30] VITALS: BP 175/66; O2SAT 97
[2025-08-18 01:11] VITALS: BP 182/69; O2SAT 97
[2025-08-18] MEDS ORDERED: DOXYCYCLINE HYCLATE 100MG IV ONE ×2 (07:00→19:32)
[2025-08-18 09:32] VITALS: BP 164/94; O2SAT 98
[2025-08-18 16:49] VITALS: BP 149/75; O2SAT 98
[2025-08-19] MEDS ORDERED: METHYLPREDNISOLONE SOD SUCC 40 MG VIAL IV SCH ×4 (01:00→21:00)
[2025-08-19 02:01] VITALS: BP 152/83; O2SAT 97
[2025-08-19] MEDS ORDERED: DOXYCYCLINE HYCLATE 100MG IV ONE ×2 (07:44→19:58)
[2025-08-19 08:29] VITALS: BP 141/77; O2SAT 95
[2025-08-19 13:23] LABS: BASO % 0.4 % (0.1-1.2); EOS # 0.00 (0.04-0.54); EOS % 0.0 % (0.7-7.0); LYMPH # 0.96 (1.18-3.74); LYMPH % 5.1 % (19.3-53.1); MEAN PLATELET VOLUME 9.80 fl (9.4-12.4); MONO # 0.78 (0.24-0.82); MONO % 4.1 % (4.7-12.5); NEUT # 16.41 (1.56-6.13); NEUT % 86.5 % (34.0-71.1); RED CELL DISTRIBUTION WIDTH 12.3 % (11.6-14.4)
[2025-08-19 13:49] LABS: ALT/SGPT 59.0 U/L (12-78); AST/SGOT 25.0 U/L (15-37); BILIRUBIN TOTAL 0.68 mg/dL (0.3-1.2); BUN CREA RATIO 19.0 (7.0-25.0); CREATININE SERUM 0.86 mg/dL (0.55-1.02); GFR 64.5; GLOBULINA 2.8 G/DL (2.4-3.5); GLUCOSE FASTING 143.0 mg/dL (65-100); OSMOLALITY SERUM 287.0 MOSM/KG (275-295)
[2025-08-19 16:00] VITALS: BP 161/77
[2025-08-19] MEDS ORDERED: FLUTICASONE PROPIONATE 50 MCG SPRAY NASAL SCH (21:00)
[2025-08-20 00:48] VITALS: BP 158/88; O2SAT 95
[2025-08-20] MEDS ORDERED: DOXYCYCLINE HYCLATE 100MG IV ONE (08:00)
[2025-08-20] MEDS ORDERED: RIVAROXABAN 20 MG TABLET PO SCH (09:00)
[2025-08-20 16:32] VITALS: BP 142/68
[2025-08-20] MEDS ORDERED: DOXYCYCLINE HYCLATE 100MG EACH PO SCH (17:00)
[2025-08-21 03:16] VITALS: BP 163/76; O2SAT 95
[2025-08-21 06:29] LABS: BASO % 0.5 % (0.1-1.2); EOS # 0.02 (0.04-0.54); EOS % 0.1 % (0.7-7.0); LYMPH # 1.42 (1.18-3.74); LYMPH % 9.2 % (19.3-53.1); MEAN PLATELET VOLUME 10.10 fl (9.4-12.4); MONO # 1.19 (0.24-0.82); MONO % 7.7 % (4.7-12.5); NEUT # 12.04 (1.56-6.13); NEUT % 78.5 % (34.0-71.1); RED CELL DISTRIBUTION WIDTH 12.4 % (11.6-14.4)
[2025-08-21 07:17] LABS: GLUCOSE FASTING 126 mg/dL (65-100); OSMOLALITY SERUM 286 MOSM/KG (275-295)
[2025-08-21 07:22] LABS: BAND MAN 4.0 %; LYMPHOCYTE MAN 4.0 %; MONOCYTE MAN 10.0 %; NEUTROPHILS MAN 79.0 %
[2025-08-21 07:41] LABS: ALT/SGPT 53 U/L (12-78); AST/SGOT 17 U/L (15-37); BILIRUBIN TOTAL 0.54 mg/dL (0.3-1.2); CREATININE SERUM 0.58 mg/dL (0.55-1.02); GFR 101.62
[2025-08-21 07:43] LABS: GLOBULINA 2.5 G/DL (2.4-3.5)
[2025-08-21 08:53] VITALS: BP 155/82; O2SAT 93
[2025-08-21] MEDS ORDERED: DILTIAZEM HCL 180 MG CAP.SR.24H PO SCH (09:00)
[2025-08-21] MEDS ORDERED: TRIAMCINOLONE ACETONIDE 40 MG/ML VIAL IM STA (14:02)
[2025-08-21 17:09] VITALS: BP 165/68; O2SAT 98
[2025-08-22 03:11] VITALS: BP 129/67; O2SAT 98
[2025-08-22 09:09] VITALS: BP 160/80; O2SAT 95
[2025-08-22] MEDS ORDERED: IPRATROPIUM BROMIDE 0.5 MG/2.5 ML AMPUL.NEB IH SCH (13:12)
[2025-08-22] MEDS ORDERED: DILTIAZEM 24HR180 MG PO (15:58)
[2025-08-22] MEDS ORDERED: LEVALBUTEROL HCL 1.25 MG/3 ML SOLUTION IH SCH (17:00)
[2025-08-22 18:03] VITALS: BP 140/64; O2SAT 98
[2025-08-22] MEDS ORDERED: METHYLPREDNISOLONE SOD SUCC 40 MG VIAL IV SCH (21:00)
[2025-08-23 03:05] VITALS: BP 146/78
[2025-08-23 09:28] VITALS: BP 130/82; O2SAT 96
== END 2025-08-23 09:34 | disposition home or self-care (01) | DRG 202 ==
LOC: ER 11:14 → MEDJ 18:34 → MEDI 08-14 10:54
PROVIDERS: General Practice; Internal Medicine Infectious Disease; ADMIT Internal Medicine; ATTEND Internal Medicine
PROC: BB24ZZZ Computerized Tomography (CT Scan) of Bilateral Lungs (ICD-10-PCS; principal; 2025-08-13)
PROC: 3E0F7GC Introduction of Other Therapeutic Substance into Respiratory Tract, Via Natural or Artificial Opening (ICD-10-PCS; 2025-08-14)
PROC: 4A12X4Z Monitoring of Cardiac Electrical Activity, External Approach (ICD-10-PCS; 2025-08-19)
PROC: B246ZZZ Ultrasonography of Right and Left Heart (ICD-10-PCS; 2025-08-20)
DX: J45.41 Moderate persistent asthma with (acute) exacerbation (principal); J44.1 Chronic obstructive pulmonary disease with (acute) exacerbation; E03.8 Other specified hypothyroidism; I48.91 Unspecified atrial fibrillation

== ENCOUNTER 2025-09-21 15:00 | Emergency (ER) | payer OTHER ==
[~2025-09-21] VITALS: Ht 172.7 cm; Wt 93.9 kg
[~2025-09-21 15:00] MED LIST changes: +CARDIZEM CD120 MG PO; +DILTIAZEM 24HR180 MG PO; +LEVOFLOXACIN500 MG PO; +MONTELUKAST SODI4 M1 PO
[2025-09-21] MEDS ORDERED: KETOROLAC TROMETHAMINE 15 MG VIAL IM STA (16:00)
[2025-09-21] MEDS ORDERED: DEXAMETHASONE SODIUM PHOSPHATE 4 MG/ML VIAL IM STA (16:00)
[2025-09-21] MEDS ORDERED: ORPHENADRINE CITRATE 30 MG/ML AMPUL IM STA (16:01)
[2025-09-21] MEDS ORDERED: NORFLEX100MG PO (17:33)
[2025-09-21] MEDS ORDERED: PEPCID AC20 MG PO (17:33)
[2025-09-21] MEDS ORDERED: MELOXICAM7.5 MG PO (17:33)
== END 2025-09-21 19:08 | disposition home or self-care (01) ==
LOC: ER 15:00
DX: M25.552 Pain in left hip (principal); I10 Essential (primary) hypertension; Z88.0 Allergy status to penicillin

== ENCOUNTER 2025-10-13 08:24 | Inpatient (IN) | payer OTHER ==
[~2025-10-13] VITALS: Ht 172.7 cm; Wt 97.1 kg
[~2025-10-13 08:24] MED LIST changes: +MELOXICAM7.5 MG PO
[2025-10-13] MEDS ORDERED: XARELTO20 M1 PO (09:30)
[2025-10-13] MEDS ORDERED: TRELEGY ELLIPT1 EAC1 IH (09:32)
[2025-10-13] MEDS ORDERED: INDERAL XL120 MG (09:34)
[2025-10-13] MEDS ORDERED: IPRATROPIUM BROMIDE 0.5 MG/2.5 ML AMPUL.NEB IH STA (09:46)
[2025-10-13] MEDS ORDERED: METHYLPREDNISOLONE SOD SUCC 125 MG VIAL IV STA (09:46)
[2025-10-13] MEDS ORDERED: METHYLPREDNISOLONE SOD SUCC 40 MG VIAL ONE ×2 (09:51→19:55)
[2025-10-13] MEDS ORDERED: LEVALBUTEROL HCL 0.63 MG/3 ML SOLUTION IH SCH ×2 (10:00→13:30)
[2025-10-13] MEDS ORDERED: LEVALBUTEROL HCL 0.63 MG/3 ML SOLUTION IH ONE ×2 (10:10→17:13)
[2025-10-13] MEDS ORDERED: IPRATROPIUM BROMIDE 0.5 MG/2.5 ML AMPUL.NEB IH ONE (10:10)
[2025-10-13 11:15] LABS: BASO % 0.4 % (0.1-1.2); EOS # 0.06 (0.04-0.54); EOS % 0.6 % (0.7-7.0); LYMPH # 1.64 (1.18-3.74); LYMPH % 17.4 % (19.3-53.1); MEAN PLATELET VOLUME 10.40 fl (9.4-12.4); MONO # 0.94 (0.24-0.82); MONO % 9.9 % (4.7-12.5); NEUT # 6.69 (1.56-6.13); NEUT % 70.9 % (34.0-71.1); RED CELL DISTRIBUTION WIDTH 13.5 % (11.6-14.4)
[2025-10-13 11:18] LABS: COVID-19 AG NEGATIVE (NEGATIVE)
[2025-10-13 11:22] LABS: ERYTHROCYTE SEDIMENTATION RATE 55 mm/hr (0-30)
[2025-10-13 11:29] LABS: INR 1.08
[2025-10-13 11:34] LABS: ALT/SGPT 44.0 U/L (12-78); AST/SGOT 23.0 U/L (15-37); BILIRUBIN TOTAL 0.39 mg/dL (0.3-1.2); BUN CREA RATIO 35.0 (7.0-25.0); CREATININE SERUM 0.66 mg/dL (0.55-1.02); GFR 87.54; GLOBULINA 3.1 G/DL (2.4-3.5); GLUCOSE FASTING 85.0 mg/dL (65-100); OSMOLALITY SERUM 290.0 MOSM/KG (275-295)
[2025-10-13 12:47] LABS: URINE APPEARANCE Clear; URINE BILIRRUBIN Negative (NEGATIVE); URINE BLOOD Negative; URINE COLOR Yellow; URINE GLUCOSE Negative (NEGATIVE); URINE KETONE Negative (NEGATIVE); URINE LEUKOCYTE Trace; URINE NITRATE Negative; URINE PROTEIN Negative (NEGATIVE); URINE UROBILINOGEN 0.2 E.U./dl
[2025-10-13 12:50] LABS: URINE BACTERIA 31.2 uL (0.0-1933); URINE EPITHELIAL CELLS 3.6 uL (0.0-38.8); URINE RBC 5.7 uL (0.0-20.8); URINE WBC 8.7 uL (0.0-23.2)
[2025-10-13 13:22] LABS: URINE CAST 0.14 uL (0.0-1.40)
[2025-10-13] MEDS ORDERED: BUDESONIDE 0.5 MG/2 ML AMPUL.NEB IH SCH (13:31)
[2025-10-13] MEDS ORDERED: METHYLPREDNISOLONE SOD SUCC 40 MG VIAL IV SCH (18:00)
[2025-10-13] MEDS ORDERED: ACETAMINOPHEN 325 MG TABLET PO PRN (18:00)
[2025-10-13] MEDS ORDERED: ONDANSETRON HCL 4 MG in 0.9 % SODIUM CHLORIDE 50 ML IV PRN (18:00)
[2025-10-13 20:30] VITALS: BP 138/77; O2SAT 97
[2025-10-13] MEDS ORDERED: DOXAZOSIN MESYLATE 2 MG TABLET PO SCH (21:00)
[2025-10-13] MEDS ORDERED: IPRATROPIUM BROMIDE 0.5 MG/2.5 ML AMPUL.NEB IH SCH (21:00)
[2025-10-13] MEDS ORDERED: LEVALBUTEROL HCL 1.25 MG/3 ML SOLUTION IH SCH (21:00)
[2025-10-13] MEDS ORDERED: levoFLOXacin IN DEXTROSE 5 % 150 ML IV SCH (21:00)
[2025-10-14] VITALS (9 sets, daily range): BP systolic 121–158; BP diastolic 69–88; O2SAT 97–100
[2025-10-14] MEDS ORDERED: METHYLPREDNISOLONE SOD SUCC 40 MG VIAL IV SCH
[2025-10-14] MEDS ORDERED: LEVOTHYROXINE SODIUM 50 MCG TABLET PO SCH (06:00)
[2025-10-14] MEDS ORDERED: ACETAMINOPHEN 500 MG GEL..CAP PO PRN (08:00)
[2025-10-14] MEDS ORDERED: PROPRANOLOL HCL 20 MG TABLET PO SCH (09:00)
[2025-10-14] MEDS ORDERED: RIVAROXABAN 20 MG TABLET PO SCH (09:00)
[2025-10-14] MEDS ORDERED: ENALAPRIL MALEATE 10 MG TABLET PO SCH (09:00)
[2025-10-14] MEDS ORDERED: DILTIAZEM HCL 180 MG CAP.SR.24H PO SCH (09:00)
[2025-10-14] MEDS ORDERED: GUAIFENESIN 100 MG/5 ML BLIST.PACK PO SCH ×2 (12:00)
[2025-10-14] MEDS ORDERED: PANTOPRAZOLE SODIUM 40 MG/VIAL VIAL IV SCH (12:00)
[2025-10-15] VITALS (9 sets, daily range): BP systolic 155–160; BP diastolic 71–84; O2SAT 94–100
[2025-10-15] MEDS ORDERED: PANTOPRAZOLE SODIUM 40 MG TABLET.DR PO SCH (09:00)
[2025-10-15] MEDS ORDERED: ENOXAPARIN SODIUM 40 MG/0.4 ML SYRINGE SUBCUTANEO SCH (09:00)
[2025-10-16] VITALS (9 sets, daily range): BP systolic 143–151; BP diastolic 59–86; O2SAT 90–98
[2025-10-16] MEDS ORDERED: LEVALBUTEROL HCL 1.25 MG/3 ML SOLUTION IH SCH
[2025-10-16] MEDS ORDERED: IPRATROPIUM BROMIDE 0.5 MG/2.5 ML AMPUL.NEB IH SCH
[2025-10-16] MEDS ORDERED: METHYLPREDNISOLONE SOD SUCC 40 MG VIAL IV SCH ×2 (01:00→21:00)
[2025-10-16 07:59] LABS: BUN CREA RATIO 26.0 (7.0-25.0); CREATININE SERUM 0.68 mg/dL (0.55-1.02); GFR 84.58; GLUCOSE FASTING 141.0 mg/dL (65-100); OSMOLALITY SERUM 286.0 MOSM/KG (275-295)
[2025-10-16 08:01] LABS: BASO % 0.1 % (0.1-1.2); EOS # 0.00 (0.04-0.54); EOS % 0.0 % (0.7-7.0); LYMPH # 1.12 (1.18-3.74); LYMPH % 7.4 % (19.3-53.1); MEAN PLATELET VOLUME 10.70 fl (9.4-12.4); MONO # 0.49 (0.24-0.82); MONO % 3.2 % (4.7-12.5); NEUT # 13.44 (1.56-6.13); NEUT % 88.6 % (34.0-71.1); RED CELL DISTRIBUTION WIDTH 13.4 % (11.6-14.4)
[2025-10-17 02:45] VITALS: BP 161/80; O2SAT 98
[2025-10-17 04:00] VITALS: O2SAT 97
[2025-10-17 05:10] VITALS: O2SAT 95
[2025-10-17 09:18] VITALS: O2SAT 96
[2025-10-17 11:07] VITALS: BP 180/96; O2SAT 97
== END 2025-10-17 14:02 | disposition home or self-care (01) | DRG 191 ==
LOC: ER 08:24 → MEDJ 22:20
PROVIDERS: Physician Assistant Medical; ADMIT Student in an Organized Health Care Education/Training Program; ATTEND Student in an Organized Health Care Education/Training Program
PROC: BB24ZZZ Computerized Tomography (CT Scan) of Bilateral Lungs (ICD-10-PCS; principal; 2025-10-13)
PROC: B246ZZZ Ultrasonography of Right and Left Heart (ICD-10-PCS; 2025-10-14)
PROC: 3E0F7GC Introduction of Other Therapeutic Substance into Respiratory Tract, Via Natural or Artificial Opening (ICD-10-PCS; 2025-10-14)
PROC: 4A12X4Z Monitoring of Cardiac Electrical Activity, External Approach (ICD-10-PCS; 2025-10-14)
DX: J44.1 Chronic obstructive pulmonary disease with (acute) exacerbation (principal); J45.41 Moderate persistent asthma with (acute) exacerbation; R06.09 Other forms of dyspnea; I48.91 Unspecified atrial fibrillation; I10 Essential (primary) hypertension; E03.8 Other specified hypothyroidism

== ENCOUNTER 2025-10-20 06:48 | Inpatient (IN) | payer OTHER ==
[~2025-10-20] VITALS: Ht 172.7 cm; Wt 97.1 kg
[~2025-10-20 06:48] MED LIST changes: +INDERAL XL120 MG; +TRELEGY ELLIPT1 EAC1 IH; +XARELTO20 M1 PO
--- NOTE | 2025-10-20 08:10 | NUR ---
SE RECIBE PTE ALERTA Y ORIENTADA QUIEN REFIERE QUE ESTUVO HOSPITALIZADA PREVIAMENTE Y NO HUTTON SENTIDO MEJORIA. SE MIDEN S/V Y SE UBICA.
[2025-10-20] MEDS ORDERED: LEVALBUTEROL HCL 1.25 MG/3 ML SOLUTION IH SCH ×2 (09:15→17:00)
--- NOTE | 2025-10-20 09:39 | NUR ---
SE COLECTAN MUESTRAS DE LABORATORIO BAJO MEDIDAS ASEPTICAS. SE NOTIFICAN TERAPIAS RESPIRATORIAS A MR [place]. SE NOTIFICA X-RAY.
[2025-10-20] MEDS ORDERED: METHYLPREDNISOLONE SOD SUCC 125 MG VIAL IV ONE (10:00)
[2025-10-20] MEDS ORDERED: levoFLOXacin IN DEXTROSE 5 % 5 MG/ML PIGGYBAG IV ONE (10:00)
[2025-10-20 10:08] LABS: BASO % 0.4 % (0.1-1.2); EOS # 0.01 (0.04-0.54); EOS % 0.1 % (0.7-7.0); LYMPH # 0.91 (1.18-3.74); LYMPH % 4.8 % (19.3-53.1); MEAN PLATELET VOLUME 9.80 fl (9.4-12.4); MONO # 0.67 (0.24-0.82); MONO % 3.5 % (4.7-12.5); NEUT # 17.19 (1.56-6.13); NEUT % 89.7 % (34.0-71.1); RED CELL DISTRIBUTION WIDTH 13.3 % (11.6-14.4)
[2025-10-20 10:12] LABS: ALT/SGPT 50.0 U/L (12-78); AST/SGOT 15.0 U/L (15-37); BILIRUBIN TOTAL 0.62 mg/dL (0.3-1.2); BUN CREA RATIO 35.0 (7.0-25.0); CREATININE SERUM 0.74 mg/dL (0.55-1.02); GFR 76.72; GLOBULINA 3.4 G/DL (2.4-3.5); GLUCOSE FASTING 139.0 mg/dL (65-100); OSMOLALITY SERUM 290.0 MOSM/KG (275-295)
--- NOTE | 2025-10-20 11:07 | NUR ---
SE CANALIZA A PACIENTE Y SE ADMINISTRAN MEDICAMENTOS NETTE ORDEN MEDICA.
[2025-10-20 11:49] LABS: URINE APPEARANCE Clear; URINE BILIRRUBIN Negative (NEGATIVE); URINE BLOOD Negative; URINE COLOR Yellow; URINE GLUCOSE Negative (NEGATIVE); URINE KETONE Negative (NEGATIVE); URINE LEUKOCYTE Small; URINE NITRATE Negative; URINE PROTEIN Negative (NEGATIVE); URINE UROBILINOGEN 0.2 E.U./dl
[2025-10-20 11:53] LABS: URINE BACTERIA 129.6 uL (0.0-1933); URINE EPITHELIAL CELLS 7.3 uL (0.0-38.8); URINE RBC 6.7 uL (0.0-20.8); URINE WBC 116.1 uL (0.0-23.2)
[2025-10-20 12:21] LABS: INR 1.01
[2025-10-20 12:21] LABS: URINE CAST 0.14 uL (0.0-1.40)
[2025-10-20] MEDS ORDERED: FAMOTIDINE/PF 20 MG in 0.9 % SODIUM CHLORIDE 8 ML IV PUSH SCH (15:39)
[2025-10-20] MEDS ORDERED: ACETAMINOPHEN 500 MG GEL..CAP PO PRN (15:45)
[2025-10-20] MEDS ORDERED: IPRATROPIUM BROMIDE 0.5 MG/2.5 ML AMPUL.NEB IH SCH (17:00)
[2025-10-20] MEDS ORDERED: METHYLPREDNISOLONE SOD SUCC 40 MG VIAL IV SCH (17:00)
[2025-10-20] MEDS ORDERED: DOXAZOSIN MESYLATE 1 MG TABLET PO SCH (21:00)
[2025-10-20] MEDS ORDERED: BUDESONIDE 0.5 MG/2 ML AMPUL.NEB IH SCH (21:00)
[2025-10-20 23:00] VITALS: BP 157/93; O2SAT 95
[2025-10-21] MEDS ORDERED: LEVOTHYROXINE SODIUM 50 MCG TABLET PO SCH (06:00)
[2025-10-21] MEDS ORDERED: ENALAPRIL MALEATE 10 MG TABLET PO SCH (09:00)
[2025-10-21] MEDS ORDERED: BENZONATATE 100 MG CAPSULE PO SCH (09:00)
[2025-10-21] MEDS ORDERED: DILTIAZEM HCL 180 MG CAP.SR.24H PO SCH (09:00)
[2025-10-21] MEDS ORDERED: ENOXAPARIN SODIUM 30 MG/0.3 ML SYRINGE SUBCUTANEO SCH (09:00)
[2025-10-21] MEDS ORDERED: PROPRANOLOL HCL 10 MG TABLET PO SCH (09:00)
[2025-10-21] MEDS ORDERED: RIVAROXABAN 20 MG TABLET PO SCH (09:00)
[2025-10-21 09:06] VITALS: BP 184/78; O2SAT 100
[2025-10-21 09:28] VITALS: O2SAT 100
[2025-10-21 13:14] VITALS: O2SAT 98
[2025-10-21 16:35] VITALS: O2SAT 99
[2025-10-21 18:29] VITALS: BP 156/97
[2025-10-21 20:11] VITALS: O2SAT 99
[2025-10-21] MEDS ORDERED: DOXAZOSIN MESYLATE 2 MG TABLET PO SCH (21:00)
[2025-10-22] VITALS (9 sets, daily range): BP systolic 125–155; BP diastolic 75–97; O2SAT 96–98
[2025-10-22] MEDS ORDERED: METHYLPREDNISOLONE SOD SUCC 40 MG VIAL IV SCH (12:00)
[2025-10-22 15:21] LABS: BASO % 0.5 % (0.1-1.2); EOS # 0.02 (0.04-0.54); EOS % 0.2 % (0.7-7.0); LYMPH # 0.95 (1.18-3.74); LYMPH % 8.0 % (19.3-53.1); MEAN PLATELET VOLUME 10.70 fl (9.4-12.4); MONO # 0.59 (0.24-0.82); MONO % 4.9 % (4.7-12.5); NEUT # 9.99 (1.56-6.13); NEUT % 83.7 % (34.0-71.1); RED CELL DISTRIBUTION WIDTH 13.2 % (11.6-14.4)
[2025-10-22] MEDS ORDERED: BENZONATATE 200 MG CAPSULE PO SCH (17:00)
[2025-10-22] MEDS ORDERED: GUAIFENESIN 200 MG/10 ML BLIST.PACK PO SCH (18:00)
[2025-10-22 21:46] LABS: BUN CREA RATIO 20.0 (7.0-25.0); CREATININE SERUM 0.96 mg/dL (0.55-1.02); GFR 56.81; OSMOLALITY SERUM 289.0 MOSM/KG (275-295)
[2025-10-22 21:47] LABS: GLUCOSE FASTING 260.0 mg/dL (65-100)
[2025-10-23] VITALS (8 sets, daily range): BP systolic 143–160; BP diastolic 82–90; O2SAT 90–99
[2025-10-23] MEDS ORDERED: METHYLPREDNISOLONE SOD SUCC 40 MG VIAL IV SCH (17:00)
[2025-10-24] VITALS (10 sets, daily range): BP systolic 155–159; BP diastolic 80–90; O2SAT 90–98
[2025-10-25] VITALS (8 sets, daily range): BP systolic 153–156; BP diastolic 77–87; O2SAT 88–97
[2025-10-26] VITALS (8 sets, daily range): BP systolic 151–170; BP diastolic 80–94; O2SAT 86–97
[2025-10-26] MEDS ORDERED: LOSARTAN POTASSIUM 25 MG TABLET PO NR (10:00)
[2025-10-26] MEDS ORDERED: METHYLPREDNISOLONE SOD SUCC 40 MG VIAL IV SCH (17:00)
[2025-10-27 03:18] VITALS: BP 143/86; O2SAT 95
[2025-10-27 05:26] VITALS: O2SAT 90
[2025-10-27] MEDS ORDERED: LOSARTAN POTASSIUM 25 MG TABLET PO SCH (09:00)
[2025-10-27 11:04] VITALS: BP 160/93; O2SAT 97
[2025-10-27 17:09] VITALS: O2SAT 92
[2025-10-27 17:59] VITALS: BP 133/78
[2025-10-27 21:27] VITALS: O2SAT 88
[2025-10-28] VITALS (8 sets, daily range): BP systolic 98–170; BP diastolic 48–90; O2SAT 90–97
[2025-10-29] VITALS (9 sets, daily range): BP systolic 128–160; BP diastolic 71–94; O2SAT 90–95
[2025-10-30] VITALS (9 sets, daily range): BP systolic 147–164; BP diastolic 67–83; O2SAT 90–99
[2025-10-30] MEDS ORDERED: IPRATROPIUM BROMIDE 0.5 MG/2.5 ML AMPUL.NEB IH SCH (06:00)
[2025-10-30] MEDS ORDERED: LEVALBUTEROL HCL 1.25 MG/3 ML SOLUTION IH SCH (06:00)
[2025-10-30] MEDS ORDERED: METHYLPREDNISOLONE SOD SUCC 40 MG VIAL IV SCH (09:00)
[2025-10-30] MEDS ORDERED: SODIUM CHLORIDE FOR INHALATION 1 VIAL.NEB IH SCH (17:35)
[2025-10-31] VITALS (9 sets, daily range): BP systolic 148–163; BP diastolic 79–92; O2SAT 93–97
[2025-10-31] MEDS ORDERED: SODIUM CHLORIDE FOR INHALATION 1 VIAL.NEB IH SCH (09:00)
[2025-10-31] MEDS ORDERED: ACETAMINOPHEN 500 MG GEL..CAP PO PRN (19:45)
[2025-11-01] VITALS (9 sets, daily range): BP systolic 139–167; BP diastolic 70–116; O2SAT 90–96
[2025-11-01] MEDS ORDERED: MAGNESIUM SULFATE/D5W 100 ML IV SCH (08:15)
[2025-11-01] MEDS ORDERED: NABUMETONE 500 MG TABLET PO PRN ×2 (10:15→11:00)
[2025-11-01] MEDS ORDERED: DIGOXIN 0.25 MG TABLET PO SCH (21:12)
[2025-11-02] VITALS (9 sets, daily range): BP systolic 118–160; BP diastolic 71–81; O2SAT 90–98
[2025-11-02] MEDS ORDERED: DILTIAZEM HCL 240 MG CAP.SR.24H PO SCH (09:00)
[2025-11-03] VITALS (9 sets, daily range): BP systolic 140–160; BP diastolic 67–84; O2SAT 90–100
[2025-11-04] VITALS (7 sets, daily range): BP systolic 111–142; BP diastolic 67–76; O2SAT 90–99
[2025-11-05 01:00] VITALS: BP 145/68; O2SAT 98
[2025-11-05 09:30] VITALS: BP 143/74; O2SAT 96
[2025-11-05 10:04] VITALS: O2SAT 94
[2025-11-05 16:41] VITALS: O2SAT 93
[2025-11-05 18:37] VITALS: BP 151/64; O2SAT 97
[2025-11-05 21:26] VITALS: O2SAT 96
[2025-11-06 01:16] VITALS: O2SAT 92
[2025-11-06 03:26] VITALS: BP 143/76; O2SAT 96
[2025-11-06 06:23] VITALS: O2SAT 96
[2025-11-06 09:43] VITALS: BP 122/66; O2SAT 98
[2025-11-06 10:31] VITALS: O2SAT 95
[2025-11-06] MEDS ORDERED: IPRATROPIUM BROMIDE 0.5 MG/2.5 ML AMPUL.NEB IH SCH (13:00)
[2025-11-06] MEDS ORDERED: LEVALBUTEROL HCL 1.25 MG/3 ML SOLUTION IH SCH (13:00)
[2025-11-06 13:38] VITALS: O2SAT 97
== END 2025-11-06 22:04 | disposition home or self-care (01) | DRG 202 ==
LOC: ER 06:48 → MEDI 17:36 → MEDJ 10-30 12:54 → MEDI 11-05 15:58 → MEDJ 11-05 19:08
PROVIDERS: Preventive Medicine Public Health & General Preventive Medicine; ADMIT Student in an Organized Health Care Education/Training Program; ATTEND Student in an Organized Health Care Education/Training Program
PROC: BW24ZZZ Computerized Tomography (CT Scan) of Chest and Abdomen (ICD-10-PCS; principal; 2025-10-20)
PROC: 4A12X4Z Monitoring of Cardiac Electrical Activity, External Approach (ICD-10-PCS; 2025-10-21)
DX: J45.901 Unspecified asthma with (acute) exacerbation (principal); J44.1 Chronic obstructive pulmonary disease with (acute) exacerbation; R06.00 Dyspnea, unspecified; I48.91 Unspecified atrial fibrillation; E66.9 Obesity, unspecified; R06.02 Shortness of breath

== ENCOUNTER 2025-11-12 16:20 | Inpatient (IN) | payer OTHER ==
[~2025-11-12] VITALS: Ht 170.2 cm; Wt 90.7 kg
[2025-11-12] MEDS ORDERED: METHYLPREDNISOLONE SOD SUCC 125 MG VIAL IV STA (17:13)
[2025-11-12] MEDS ORDERED: IPRATROPIUM BROMIDE 0.5 MG/2.5 ML AMPUL.NEB IH SCH ×2 (17:14→17:15)
[2025-11-12] MEDS ORDERED: DILTIAZEM HCL 25 MG/5 ML VIAL IV ONE ×2 (17:15→17:20)
[2025-11-12] MEDS ORDERED: LEVALBUTEROL HCL 0.63 MG/3 ML SOLUTION IH SCH ×2 (17:15→18:00)
[2025-11-12] MEDS ORDERED: IPRATROPIUM BROMIDE 0.5 MG/2.5 ML AMPUL.NEB IH ONE (17:17)
[2025-11-12] MEDS ORDERED: LEVALBUTEROL HCL 0.63 MG/3 ML SOLUTION IH ONE (17:17)
[2025-11-12] MEDS ORDERED: METHYLPREDNISOLONE SOD SUCC 125 MG VIAL ONE (17:20)
--- NOTE | 2025-11-12 17:20 | NUR ---
SE RECIBE PTE ALERTA Y ORIENTADA X 3 ESFERAS EN [place] DE [place] EN COMPANIA DE FAMILIAR Y ESCOLTA,LA MISMA REFIERE DESDE ESTA MANANA PRESENTA DIFICULTAD RESP Y DEBILIDAD.AL MOMENTO SE LE OBSERVACION CON RETRACCION ABDOMINAL Y USO DE MUSCULOS ACCESORIOS.REFIERE FUE GLADIS DE SONIDO POR INFECCION EN PULMONES HACE 2 SEMANAS A [place] DE [place].SE PRESENTA VIK A DR WATTS Y SE UBICA EN CPU.
[2025-11-12 17:37] LABS: BASO % 0.3 % (0.1-1.2); EOS # 0.01 (0.04-0.54); EOS % 0.1 % (0.7-7.0); LYMPH # 0.67 (1.18-3.74); LYMPH % 7.6 % (19.3-53.1); MEAN PLATELET VOLUME 9.70 fl (9.4-12.4); MONO # 0.13 (0.24-0.82); MONO % 1.5 % (4.7-12.5); NEUT # 7.75 (1.56-6.13); NEUT % 87.7 % (34.0-71.1); RED CELL DISTRIBUTION WIDTH 13.0 % (11.6-14.4)
[2025-11-12 17:55] LABS: INR 1.28
[2025-11-12 17:59] LABS: ERYTHROCYTE SEDIMENTATION RATE 85 mm/hr (0-30)
[2025-11-12 18:07] LABS: ALT/SGPT 53.0 U/L (12-78); AST/SGOT 19.0 U/L (15-37); BILIRUBIN TOTAL 0.72 mg/dL (0.3-1.2); BUN CREA RATIO 26.0 (7.0-25.0); CREATININE SERUM 0.54 mg/dL (0.55-1.02); GFR 110.36; GLOBULINA 3.3 G/DL (2.4-3.5)
--- NOTE | 2025-11-12 18:10 | NUR ---
SE CONECTA PACIENTE A MONITOR CARDIACO Y OXIMETRIA DE PULSO. SE COLOCA CANULA NASAL @4LT/MIN. SE CANALIZA Y COLECTAN MUESTRAS DE LABORATORIO MEDIANTE MEDIDAS ASEPTICAS. SE ADMINSITRAN MEDICAMENTOS NETTE ORDEN MEDICA. SE COLOCA [place] MEDIANTE MEDIDES ESTERILES, SE OBSERVA EGRESO URINARIO COLOR AMARILLO OSCURO. SE SANDRA MUESTRA DE UA. PACIENTE EN ESPERA DE "CHEST PORTABLE".
[2025-11-12 18:15] LABS: GLUCOSE FASTING 342.0 mg/dL (65-100); OSMOLALITY SERUM 286.0 MOSM/KG (275-295)
[2025-11-12 18:34] LABS: URINE APPEARANCE Cloudy; URINE BILIRRUBIN Small (NEGATIVE); URINE BLOOD Negative; URINE COLOR Dark Yellow; URINE KETONE 15 (NEGATIVE); URINE LEUKOCYTE Trace; URINE NITRATE Positive; URINE UROBILINOGEN 1.0 E.U./dl
[2025-11-12 18:39] LABS: URINE BACTERIA 765.3 uL (0.0-1933); URINE CAST 4.24 uL (0.0-1.40); URINE EPITHELIAL CELLS 16.5 uL (0.0-38.8); URINE RBC 32.8 uL (0.0-20.8); URINE WBC 52.4 uL (0.0-23.2)
[2025-11-12 18:53] LABS: COVID-19 AG NEGATIVE (NEGATIVE)
[2025-11-12 19:10] LABS: URINE GLUCOSE 250 MG/DL (NEGATIVE); URINE PROTEIN 100 (NEGATIVE)
[2025-11-12 19:21] LABS: URINE MUCUS MODERATE
[2025-11-12 19:22] LABS: URINE CRYSTALS FEW /HPF
[2025-11-12 19:23] LABS: TYPE CELLS SQUAMOUS
[2025-11-12] MEDS ORDERED: levoFLOXacin IN DEXTROSE 5 % 5 MG/ML PIGGYBAG IV STA (20:05)
[2025-11-12] MEDS ORDERED: DILTIAZEM HCL 125 MG in 0.9 % SODIUM CHLORIDE 100 ML IV SCH ×2 (20:15→21:30)
--- NOTE | 2025-11-12 20:30 | NUR ---
SE RECIBE PTE ALERTA Y ORIENTADA X3 A LA UNIDAD DE ICU-2 EN EL CUARTO #1. PTE SE ENCUENTRA CON BARANDAS ELEVADAS. PTE TIENE REACCION PUPILAR BILATERAL. PTE TIENE 2 VENOPUNCIONES CON H/L EN EL BRAZO DERECHO E ANTHONY AMBOS #22. PTE TIENE FOLI #16 BAJANDO A GRAVEDAD. SE PROCEDE A CONECTAR A MONITOR CARDIACO E OXIMETRIA DE PULSO NETTE ORDEN MEDICA. PERISTALSIS PRESENTE, PTE SE ENCUENTRA STACIE DE HERITEMA E HEMATOMA. SE PROCEDE A ORIENTAR A PTE SOBRE TRATAMIENTO A SEGUIR. SE CONTINUA EN MONITOREO.
[2025-11-12] MEDS ORDERED: INSULIN LISPRO 1,000 UNIT/10 ML UNITS SUBCUTANEO PRN (21:15)
[2025-11-12] MEDS ORDERED: DEXTROSE 50 % IN WATER 0.5 G/ML DISP.SYRIN IV PRN (21:15)
[2025-11-12] MEDS ORDERED: ENOXAPARIN SODIUM 40 MG/0.4 ML SYRINGE SUBCUTANEO SCH (21:17)
[2025-11-12] MEDS ORDERED: FAMOTIDINE/PF 20 MG in 0.9 % SODIUM CHLORIDE 100 ML IV SCH (21:19)
[2025-11-12] MEDS ORDERED: FAMOTIDINE/PF 20 MG/2 ML VIAL ONE (22:23)
[2025-11-12] MEDS ORDERED: ENOXAPARIN SODIUM 40 MG/0.4 ML SYRINGE SUBCUTANEO ONE (22:23)
[2025-11-12 22:56] VITALS: BP 113/63; O2SAT 92
[2025-11-12 23:45] VITALS: BP 122/62; O2SAT 95
[2025-11-13] VITALS (12 sets, daily range): BP systolic 108–156; BP diastolic 55–75; O2SAT 91–100
[2025-11-13] MEDS ORDERED: IPRATROPIUM BROMIDE 0.5 MG/2.5 ML AMPUL.NEB IH ONE ×2 (00:51→08:12)
[2025-11-13] MEDS ORDERED: LEVALBUTEROL HCL 0.63 MG/3 ML SOLUTION IH ONE ×2 (00:51→08:12)
[2025-11-13 06:18] LABS: BASO % 0.2 % (0.1-1.2); EOS # 0.00 (0.04-0.54); EOS % 0.0 % (0.7-7.0); LYMPH # 0.67 (1.18-3.74); LYMPH % 7.7 % (19.3-53.1); MEAN PLATELET VOLUME 9.60 fl (9.4-12.4); MONO # 0.09 (0.24-0.82); MONO % 1.0 % (4.7-12.5); NEUT # 7.70 (1.56-6.13); NEUT % 89.0 % (34.0-71.1); RED CELL DISTRIBUTION WIDTH 12.8 % (11.6-14.4)
[2025-11-13 06:32] LABS: INR 1.11
[2025-11-13 07:00] LABS: BUN CREA RATIO 28.0 (7.0-25.0); CREATININE SERUM 0.53 mg/dL (0.55-1.02); GFR 112.76; OSMOLALITY SERUM 295.0 MOSM/KG (275-295)
[2025-11-13 07:01] LABS: GLUCOSE FASTING 372.0 mg/dL (65-100)
[2025-11-13] MEDS ORDERED: DIGOXIN 0.25 MG TABLET PO SCH (09:00)
[2025-11-13] MEDS ORDERED: ENOXAPARIN SODIUM 100 MG/ML SYRINGE SUBCUTANEO SCH (09:00)
[2025-11-13] MEDS ORDERED: DILTIAZEM HCL 30 MG TABLET PO SCH (09:00)
[2025-11-13] MEDS ORDERED: INSULIN LISPRO 1,000 UNIT/10 ML UNITS SUBCUTANEO ONE ×3 (10:07→18:20)
[2025-11-13] MEDS ORDERED: LEVALBUTEROL HCL 0.63 MG/3 ML SOLUTION IH SCH (14:44)
[2025-11-14 01:43] VITALS: BP 115/51; O2SAT 99
[2025-11-14 08:57] VITALS: BP 149/57; O2SAT 96
[2025-11-14] MEDS ORDERED: METHYLPREDNISOLONE SOD SUCC 40 MG VIAL IV SCH ×3 (10:09→13:00)
[2025-11-14] MEDS ORDERED: DILTIAZEM HCL 30 MG TABLET PO SCH (17:00)
[2025-11-14 18:30] VITALS: BP 154/66; O2SAT 96
[2025-11-15 01:29] VITALS: BP 147/83; O2SAT 97
[2025-11-15 08:52] VITALS: BP 149/74; O2SAT 96
[2025-11-15] MEDS ORDERED: DILTIAZEM HCL 60 MG TABLET PO SCH (09:00)
[2025-11-15] MEDS ORDERED: GUAIFENESIN 600 MG TABLET.SA PO SCH (09:00)
[2025-11-15 18:13] VITALS: BP 160/73; O2SAT 96
[2025-11-16 03:53] VITALS: BP 136/69; O2SAT 91
[2025-11-16 11:23] VITALS: BP 129/54; O2SAT 96
[2025-11-16] MEDS ORDERED: CLOTRIMAZOLE 10 MG TROCHE MM SCH (13:00)
[2025-11-16 19:51] VITALS: BP 125/64
[2025-11-17 02:14] VITALS: BP 160/82; O2SAT 94
[2025-11-17 09:36] VITALS: BP 142/73; O2SAT 97
[2025-11-17 19:49] VITALS: BP 146/72
[2025-11-18] MEDS ORDERED: METHYLPREDNISOLONE SOD SUCC 40 MG VIAL IV SCH (13:00)
[2025-11-18 19:09] VITALS: BP 160/85; O2SAT 95
[2025-11-19 03:01] VITALS: BP 155/85; O2SAT 98
[2025-11-19 09:47] VITALS: BP 131/69; O2SAT 94
[2025-11-19] MEDS ORDERED: DILTIAZEM HCL 180 MG CAP.SR.24H PO NR (10:30)
[2025-11-19 18:09] VITALS: BP 147/87
[2025-11-20 02:30] VITALS: BP 144/68; O2SAT 96
[2025-11-20] MEDS ORDERED: DILTIAZEM HCL 180 MG CAP.SR.24H PO SCH (09:00)
[2025-11-20 09:39] VITALS: BP 150/77; O2SAT 95
[2025-11-20] MEDS ORDERED: IPRATROPIUM BROMIDE 0.5 MG/2.5 ML AMPUL.NEB IH SCH (12:00)
[2025-11-20] MEDS ORDERED: LEVALBUTEROL HCL 0.63 MG/3 ML SOLUTION IH SCH (12:00)
== END 2025-11-20 22:45 | disposition home or self-care (01) | DRG 309 ==
LOC: ER 16:21 → ICU-2 22:27 → MEDJ 11-13 19:58
PROVIDERS: Physician Assistant Medical; ADMIT Student in an Organized Health Care Education/Training Program; ATTEND Student in an Organized Health Care Education/Training Program
PROC: B24BYZZ Ultrasonography of Heart with Aorta using Other Contrast (ICD-10-PCS; principal; 2025-11-12)
PROC: 4A12X4Z Monitoring of Cardiac Electrical Activity, External Approach (ICD-10-PCS; 2025-11-13)
DX: I48.91 Unspecified atrial fibrillation (principal); J44.1 Chronic obstructive pulmonary disease with (acute) exacerbation; J45.901 Unspecified asthma with (acute) exacerbation; I50.9 Heart failure, unspecified; R09.02 Hypoxemia

== ENCOUNTER 2025-11-26 12:57 | Emergency (ER) | payer OTHER ==
[~2025-11-26] VITALS: Ht 175.3 cm; Wt 100.2 kg
[2025-11-26] MEDS ORDERED: levoFLOXacin IN DEXTROSE 5 % 500MG/100ML PIGGYBAG IV SCH (15:33)
[2025-11-26] MEDS ORDERED: LEVALBUTEROL HCL 1.25 MG/3 ML SOLUTION IH SCH (15:34)
[2025-11-26] MEDS ORDERED: FAMOTIDINE/PF 20 MG/2 ML VIAL IV ONE (15:45)
[2025-11-26] MEDS ORDERED: 0.9 % SODIUM CHLORIDE 1,000 ML IV ONE (15:45)
[2025-11-26 19:07] LABS: BASO % 1.1 % (0.1-1.2); EOS # 0.01 (0.04-0.54); EOS % 0.1 % (0.7-7.0); LYMPH # 0.75 (1.18-3.74); LYMPH % 9.5 % (19.3-53.1); MEAN PLATELET VOLUME 10.30 fl (9.4-12.4); MONO # 0.42 (0.24-0.82); MONO % 5.3 % (4.7-12.5); NEUT # 5.73 (1.56-6.13); NEUT % 72.8 % (34.0-71.1); RED CELL DISTRIBUTION WIDTH 13.5 % (11.6-14.4)
[2025-11-26 19:23] LABS: COVID-19 AG NEGATIVE (NEGATIVE)
[2025-11-26] MEDS ORDERED: DEXAMETHASONE SODIUM PHOSP/PF 10 MG/ML VIAL IV ONE (19:30)
[2025-11-26 19:47] LABS: INR 1.08
[2025-11-26 19:50] LABS: ALT/SGPT 49.0 U/L (12-78); AST/SGOT 30.0 U/L (15-37); BILIRUBIN TOTAL 0.46 mg/dL (0.3-1.2); BUN CREA RATIO 34.0 (7.0-25.0); CREATININE SERUM 0.32 mg/dL (0.55-1.02); GFR 201.85; GLOBULINA 3.0 G/DL (2.4-3.5); OSMOLALITY SERUM 288.0 MOSM/KG (275-295)
[2025-11-26 19:56] LABS: GLUCOSE FASTING 269.0 mg/dL (65-100)
[2025-11-26 21:01] LABS: BAND MAN 7.0 %; LYMPHOCYTE MAN 4.0 %; METAMYELOCYTE 3.0 %; MONOCYTE MAN 1.0 %; MYELOCYTE 1.0 %
[2025-11-26 21:04] LABS: NEUTROPHILS MAN 79.0 %
[2025-11-26] MEDS ORDERED: NORFLEX100MG PO (21:58)
== END 2025-11-27 00:51 | disposition home or self-care (01) ==
LOC: ER 12:57
PROVIDERS: General Practice
DX: R10.A1 Flank pain, right side (principal); R10.9 Unspecified abdominal pain; N39.0 Urinary tract infection, site not specified; I10 Essential (primary) hypertension; E03.8 Other specified hypothyroidism; E11.9 Type 2 diabetes mellitus without complications; Z20.822 Contact with and (suspected) exposure to COVID-19; Z88.0 Allergy status to penicillin
CPT/HCPCS: 36415; 51702; 71045; 74176; 82803; 94640; 96365; 96366; 99284; J1100; J1956; J3490 ×2; J7030